=== PATIENT | female | born 2000 | race Caucasian/White ===

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

== ENCOUNTER 2019-06-12 11:02 | Emergency (ER) | payer BC ==
[2019-06-12] MEDS ORDERED: LIDOCAINE 1% MPF 30 ML VIAL ONE (11:54)
--- NOTE | 2019-06-12 12:28 | ER ---
Nurse's Notes [facility] Name: Maria Alejandra Dela Cruz Age: 18 yrs Sex: Female : 2000 Arrival Date: 06/12/2019 Time: 11:03 Bed 15 Private MD: Diagnosis: Cutaneous abscess of left axilla Presentation: 06/12 11:35 Presenting complaint: Patient states: Abscess on L armpit x 1 week. Popped last night. ca1 Reports fever. Transition of care: patient was not received from another setting of care. Onset of symptoms was June 12, 2019. Risk Assessment: Do you want to hurt yourself or someone else? Patient reports no desire to harm self or others. Initial Sepsis Screen: Does the patient meet any 2 criteria? No. Patient's initial sepsis screen is negative. Does the patient have a suspected source of infection? No. Patient's initial sepsis screen is negative. Care prior to arrival: None. 11:35 Method Of Arrival: Ambulatory ca1 11:35 Acuity: KAYLA 4 ca1 Triage Assessment: 12:00 General: Behavior is calm, cooperative, appropriate for age. 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 - Coronavirus screen:: The patient has NOT traveled to [place] in the past 14 days. The patient has NOT had contact with known/suspected case of Coronavirus?. - Social history:: Smoking status: Patient denies any tobacco usage or history of. - Ebola Screening: : Patient negative for fever greater than or equal to 101.5 degrees Fahrenheit, and additional compatible Ebola Virus Disease symptoms Patient denies exposure to infectious person Patient denies travel to an Ebola-affected area in the 21 days before illness onset No symptoms or risks identified at this time. Screenin:09 Abuse screen: Denies threats or abuse. Nutritional screening: No deficits noted. vc Tuberculosis screening: No symptoms or risk factors identified. Fall Risk None identified. Assessment: 11:50 General: Appears in no apparent distress. iw 12:00 General: Appears in no apparent distress. Behavior is calm, cooperative, appropriate vc for age. Pain: Complains of pain in left axilla 12:00 Neuro: Level of Consciousness is awake, alert, obeys commands, Oriented to person, vc place, time, situation, Appropriate for age. Cardiovascular: Patient's skin is warm and dry. Respiratory: Respiratory effort is even, unlabored, Respiratory pattern is regular, symmetrical. GI: No deficits noted. : No deficits noted. EENT: No deficits noted. Derm: Abscess located on left axilla. Musculoskeletal: Circulation, motion, and sensation intact. Range of motion: intact in all extremities. Vital Signs: 11:36 BP 136 / 89; Pulse 94; Resp 16 S; Temp 97.6(TE); Pulse Ox 99% on R/A; Weight 81.65 kg ca1 (R); Height 5 ft. 6 in. (167.64 cm) (R); Pain 4/10; 12:30 BP 136 / 68; Pulse 88; Resp 16; Pulse Ox 100% on R/A; vc 11:36 Body Mass Index 29.05 (81.65 kg, 167.64 cm) ca1 ED Course: 11:03 Patient arrived in ED. as 11:29 Steven Slade PA is PHCP. jr8 11:29 Joshua Castellon MD is Attending Physician. jr8 11:34 Lupis Crabtree, TONE is Primary Nurse. iw 11:35 Triage completed. ca1 11:36 Arm band placed on right wrist. ca1 12:28 Stoney Landrum MD is Referral Physician. jr8 12:30 Patient has correct armband on for positive identification. Bed in low position. Side vc rails up X 1. 12:44 Assist provider with I \T\ D: of an abscess on left axilla Set up I\T\D tray. Performed by vc Steven CHAVES Wound packed. iodoform gauze, Dressing with 4X4s, tape Patient tolerated well. 12:45 Dressings: 4X4s X 2; left axilla. vc 12:50 Patient did not have IV access during this emergency room visit. vc Administered Medications: 12:43 Drug: Lidocaine (1 %) 1 vials Volume: 20 ml; Route: Infiltration; vc Outcome: 12:28 Discharge ordered by MD. jr8 12:50 Discharged to home ambulatory, with family. 12:50 Condition: improved 12:50 Discharge instructions given to patient, family, Instructed on discharge instructions, follow up and referral plans. medication usage, wound care, Demonstrated understanding of instructions, follow-up care, medications, wound care, Prescriptions given X 2. 12:55 Patient left the ED. vc Signatures: Henrietta Quiros Irene, RN RN iw Steven Slade PA PA jr8 Acob, Cheryl, RN RN ca1 Tiffany Cabrera RN RN vc
--- NOTE | 2019-06-12 12:29 | EDPHYS ---
Physician Documentation [facility] Name: Maria Alejandra Dela Cruz Age: 18 yrs Sex: Female : 2000 Arrival Date: 06/12/2019 Time: 11:03 Bed 15 Private MD: ED Physician Joshua Castellon HPI: 06/12 12:09 This 18 yrs old Female presents to ER via Ambulatory with complaints of jr8 Abscess. 12:09 The patient presents with an abscess of the left armpit. Description: The affected area jr8 is moderate sized, well demarcated, draining, erythematous, fluctuant, swollen, tense. Onset: The symptoms/episode began/occurred gradually, 2 day(s) ago. Possible cause(s): unknown. Associated signs and symptoms: The patient has no apparent associated signs or symptoms. Modifying factors: the symptoms are alleviated by nothing, the symptoms are aggravated by nothing. Severity of symptoms: At their worst the symptoms were mild, in the emergency department the symptoms are unchanged. The patient has not experienced similar symptoms in the past. The patient has not recently seen a physician. 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 - Coronavirus screen:: The patient has NOT traveled to [place] in the past 14 days. The patient has NOT had contact with known/suspected case of Coronavirus?. - Social history:: Smoking status: Patient denies any tobacco usage or history of. - Ebola Screening: : Patient negative for fever greater than or equal to 101.5 degrees Fahrenheit, and additional compatible Ebola Virus Disease symptoms Patient denies exposure to infectious person Patient denies travel to an Ebola-affected area in the 21 days before illness onset No symptoms or risks identified at this time. ROS: 12:09 Constitutional: Negative for fever, chills, and weight loss. jr8 12:09 Eyes: Negative for injury, pain, redness, and discharge, ENT: Negative for injury, pain, and discharge, Neck: Negative for injury, pain, and swelling, Cardiovascular: Negative for chest pain, palpitations, and edema, Respiratory: Negative for shortness of breath, cough, wheezing, and pleuritic chest pain, Abdomen/GI: Negative for abdominal pain, nausea, vomiting, diarrhea, and constipation, Back: Negative for injury and pain, MS/Extremity: Negative for injury and deformity, Neuro: Negative for headache, weakness, numbness, tingling, and seizure. 12:09 Skin: Positive for abscess. Exam: 12:09 Eyes: Pupils equal round and reactive to light, extra-ocular motions intact. Lids and jr8 lashes normal. Conjunctiva and sclera are non-icteric and not injected. Cornea within normal limits. Periorbital areas with no swelling, redness, or edema. ENT: Nares patent. No nasal discharge, no septal abnormalities noted. Tympanic membranes are normal and external auditory canals are clear. Oropharynx with no redness, swelling, or masses, exudates, or evidence of obstruction, uvula midline. Mucous membranes moist. Neck: Trachea midline, no thyromegaly or masses palpated, and no cervical lymphadenopathy. Supple, full range of motion without nuchal rigidity, or vertebral point tenderness. No Meningismus. Cardiovascular: Regular rate and rhythm with a normal S1 and S2. No gallops, murmurs, or rubs. Normal PMI, no JVD. No pulse deficits. Respiratory: Lungs have equal breath sounds bilaterally, clear to auscultation and percussion. No rales, rhonchi or wheezes noted. No increased work of breathing, no retractions or nasal flaring. Abdomen/GI: Soft, non-tender, with normal bowel sounds. No distension or tympany. No guarding or rebound. No evidence of tenderness throughout. Back: No spinal tenderness. No costovertebral tenderness. Full range of motion. MS/ Extremity: Pulses equal, no cyanosis. Neurovascular intact. Full, normal range of motion. Neuro: Awake and alert, GCS 15, oriented to person, place, time, and situation. Cranial nerves II-XII grossly intact. Motor strength 5/5 in all extremities. Sensory grossly intact. Cerebellar exam normal. Normal gait. 12:09 Skin: abscess, that is moderate sized, approximately 2.5 cm(s), of the left armpit, with drainage, that is purulent, with fluctuance, that is moderate, cellulitis, is not appreciated, induration, that is moderate is noted. Vital Signs: 11:36 BP 136 / 89; Pulse 94; Resp 16 S; Temp 97.6(TE); Pulse Ox 99% on R/A; Weight 81.65 kg ca1 (R); Height 5 ft. 6 in. (167.64 cm) (R); Pain 4/10; 12:30 BP 136 / 68; Pulse 88; Resp 16; Pulse Ox 100% on R/A; vc 11:36 Body Mass Index 29.05 (81.65 kg, 167.64 cm) ca1 Procedures: 12:27 I \T\ D: Incision and drainage was performed for an abscess of the left axilla. Prepped jr8 with Betadine, Anesthetized with 10 ml's 1% Lidocaine. Incised with #11 blade. Drained moderate amount purulent fluid. serosanguinous fluid. bloody fluid. Loculations removed. Abscess cavity explored. Packed with iodoform gauze, Dressing: sterile 4x4 gauze, the patient tolerated the procedure well. MDM: 11:29 Patient medically screened. jr8 12:28 Differential diagnosis: abscess, cellulitis, insect bite. Data reviewed: vital signs, jr8 nurses notes. Data interpreted: Pulse oximetry: on room air is 99 %. Interpretation: normal. Counseling: I had a detailed discussion with the patient and/or guardian regarding: the historical points, exam findings, and any diagnostic results supporting the discharge/admit diagnosis, lab results, the need for outpatient follow up, a general surgeon, to return to the emergency department if symptoms worsen or persist or if there are any questions or concerns that arise at home. ED course: Told to return to ED in 48 for packing removal if she could not get into see general surgery or if things were to worsen. Patient good with plan . 06/12 11:44 Order name: I\T\D Setup; Complete Time: 11:55 jr8 Administered Medications: 12:43 Drug: Lidocaine (1 %) 1 vials Volume: 20 ml; Route: Infiltration; vc Disposition: 15:14 Co-signature as Attending Physician, Joshua Castellon MD. rn Disposition: 06/12/19 12:28 Discharged to Home. Impression: Cutaneous abscess of left axilla. - Condition is Stable. - Discharge Instructions: Skin Abscess, Incision and Drainage. - Prescriptions for Bactrim DS 800- 160 mg Oral Tablet - take 1 tablet by ORAL route every 12 hours for 10 days; 20 tablet. Ibuprofen 800 mg Oral Tablet - take 1 tablet by ORAL route every 12 hours As needed take with food; 20 tablet. - Medication Reconciliation Form, Thank You Letter, Antibiotic Education, Prescription Opioid Use form. - Follow up: Stoney Landrum MD; When: 48 Hours; Reason: Wound Recheck, Recheck today's complaints, Continuance of care, Re-evaluation by your physician. - Problem is new. - Symptoms have improved. Signatures: Joshua Castellon MD MD rn Steven Slade PA PA jr8 Melinda Mcclelladn RN RN ca1 Tiffany Cabrera RN RN vc Corrections: (The following items were deleted from the chart) 12:55 12:28 06/12/2019 12:28 Discharged to Home. Impression: Cutaneous abscess of left vc axilla. Condition is Stable. Forms are Medication Reconciliation Form, Thank You Letter, Antibiotic Education, Prescription Opioid Use. Follow up: Dr. Stoney Landrum; When: 48 Hours; Reason: Wound Recheck, Recheck today's complaints, Continuance of care, Re-evaluation by your physician. Problem is new. Symptoms have improved. jr8
[2019-06-12 13:23] VITALS: BP 136/89; TEMP 97.6; O2SAT 99
== END 2019-06-12 12:55 | disposition home or self-care (01) ==
LOC: ER 11:02
PROC: 0J9F0ZZ Drainage of Left Upper Arm Subcutaneous Tissue and Fascia, Open Approach (ICD-10-PCS; principal; 2019-06-12)
DX: L02.412 Cutaneous abscess of left axilla (principal)
CPT/HCPCS: 99283

== ENCOUNTER 2024-08-01 09:59 | Emergency (ER) | payer BC ==
--- OUTSIDE RECORDS SUMMARY | 2024-08-01 10:07 | XMS REPORT | Continuity of Care Document ---
Author Name Unknown Address [address] [facility] [address] [place] [address] [facility] [place] Address [address] [facility] [address] [place] [address] Care Team Providers Care Primary [place] Name Role Phone Xavier Beckford NP Primary Care Physic john XAVIER BECKFORD Attending Clinician Unavailable Analy MACHINE ACCOUNTANT, Xavier Attending Clinician + [phone] Camron Corbett MD Attending Clinician [phone] CAMRON CORBETT Attending Clinician Unavail able Doctor Unassigned, [place] Attending Clinician U navailable Analy MACHINE ACCOUNTANT, Xavier Attending Clinician [phone] YAHAIRA LUEVANO Attending Clinician Unavail able Haroldo VAZQUEZ Attending Clinician Unavailable Haroldo Christianson Attending Clinician [phone] Paola Yusuf MD Attending Clinician Sheri Tejeda PA-C Attending Clinician [phone] SHERI TEJEDA Attending Clinician Unavailable RADIOLOGY Attending Clinician Unavailable Radiology Attending Clinician Unavailable SUSAN SUAREZ Attending Clinician Unavailable PAOLA YUSUF Attending Clinician Milly vailable Vaccine, [facility] Attending Clinician UnaCyril Laurent DO Attending Clinician [phone] Provider, [facility] Attending Clinician Un available Ivy Bustillos Attending Clinician NAVJOT BOWEN Admitting Clinician Unavailabl e Payers Payer Name Policy Type Policy Number Effective Date Expirati on Date Source [facility] [id number] 2016 00:00:00 [employer] COMM [id number] 2019 00:00:00 Problems Condition Name Condition Details Condition Category Status Onset Date Resolution Date Last Treatment Date Treating Clinician Comments Source Other headache syndrome Other headache syndrome Disease Active 2023-04 00:00: 00 Jessie Valentin Epic Papilledem a Papilledem a Disease Active 2023-04 00:00: 00 Jessie Valentin Epic Acquired acanthosis nigricans Acquired acanthosis nigricans Disease Active 2014-04 00:00: 00 Jessie litzy [place] Epic BMI (body mass index), pediatric, > 99% for age BMI (body mass index), pediatric, > 99% for age Disease Active 2014-04 00:00: 00 [facility] Allergic rhinitis Allergic rhinitis Disease Active Overview: Formattin g of this note might be different from the original. ICD10 Diagnosis Term Meter/Relay Technician Utility [facility] Allergies, Adverse Reactions, Alerts Allergy Name Allergy Type Status Severity Reaction(s) Onset Date Inactive Date Treating Clinician Comments Source NO KNOWN ALLERGIE S Drug Class Active [facility] Social History Social Habit Start Date Stop Date Quantity Comments Source Gender identity 2024-03-22 15:50:23 Identifies as female gender (finding) [facility] Sexual orientation 2024-03-22 15:50:23 Heterosexual (finding) [facility] History SDOH Alcohol Std Drinks [facility] History SDOH Alcohol Binge [facility] History SDOH Alcohol Comment [place] [facility] ASSERTION Possible [facility] Tobacco use and exposure 2024-03-23 00:00:00 2024-03-23 00:00:00 Smokeless tobacco non-user [facility] History of Social function 2024-03-23 00:00:00 2024-03-23 00:00:00 [facility] Alcohol intake 2023-06-17 00:00:00 2023-06-17 00:00:00 Current drinker of alcohol (finding) [facility] Alcoholic beverage intake 2023-06-17 00:00:00 2023-06-17 00:00:00 Current drinker of alcohol (finding) [facility] Exposure to SARS-CoV-2 (event) 2022-05-18 00:00:00 2022-05-28 09:56:00 Not sure [facility] History SDOH Alcohol Frequency 2019-06-29 00:00:00 2019-06-29 00:00:00 1 [facility] Sex assigned at 2000 00:00:00 2000 00:00:00 [facility] Smoking Status Start Date Stop Date Source Never smoked tobacco Jessei Valentin [facility] Medications Ordered Medication Name Filled Medication Name Start Date Stop Date Current Medication? Ordering Clinician Indication Dosage Frequency Signature (SIG) Comments Components Source topiramate (Topamax) 25 MG tablet topiramate (Topamax) 25 MG tablet 2023-04 00:00: 00 03-23 23:59 :00 No 25mg Take 1 tablet by mouth at bedtime. Jessie Valentin [facility] Blood Pressure Monitor Kit 06-17 00:00: 00 Yes [id number] Use as directed [facility] semaglutide (OZEMPIC) 0.25 mg or 0.5 mg(2 mg/1.5 mL) PnIj 06-17 00:00: 00 07-09 04:59 :00 No [id number] .25mg inject 0.25 mg under the skin weekly for 4 doses. [facility] ergocalcife rol, vitamin d2, (VITAMIN D2) 1,250 mcg (50,000 unit) capsule 05-29 00:00: 00 07-19 04:59 :00 No [id number] Take 1 capsule by mouth weekly for 8 doses. [facility] SERTraline 50 mg tablet 05-28 00:00: 00 08-27 04:59 :00 No [id number] 50mg Take 1 tablet by mouth in the morning for 90 days. [facility] dexamethaso ne sod phos PF injection 10 mg 05-22 17:15: 00 05-22 17:23 :00 No 10mg 10 mg, Oral, ONCE, 1 dose, On Simran 05/22/22 at 1115, 1 mL [facility] ZENAIDA FE 1.5/30, 28, 1.5 mg-30 mcg (21)/75 mg (7) per tablet 2021-04 2- 00:00: 00 06-22 00:00 :00 No 1{tbl} Take 1 tablet by mouth in the morning. [facility] SERTraline 50 mg tablet 11-22 00:00: 00 05-28 00:00 :00 No [id number] 50mg Take 1 tablet by mouth in the morning. [facility] ferrous sulfate 324 mg (65 mg iron) EC tablet 2020-04 00:00: 00 05-28 00:00 :00 No [id number] 324mg Take 1 tablet by mouth daily with breakfast. [facility] SERTraline 50 mg tablet 2020-04 00:00: 00 11-22 00:00 :00 No [id number] 50mg Take 1 tablet by mouth daily. [facility] ferrous sulfate 324 mg (65 mg iron) EC tablet 2020-04 0-19 00:00: 00 03-28 00:00 :00 No [id number] 324mg Take 1 tablet by mouth daily with breakfast. [facility] Immunizations Ordered Immunization Name Filled Immunization Name Date Status Comments Source HPV9 2024-06-23 00:00:00 Completed [facility] HPV9 2022-05-28 00:00:00 Completed [facility] Influenza Virus Vaccine Quad IM, Preserv and ABX Free 6 MO-64 YRS 2022-05-28 00:00:00 Completed [facility] SARS-COV-2 COVID-19 CARLOS ALBERTO-SUCROSE VACCINE 12 YRS+, BIVALENT 0.3ML, IM, (PFIZER SOTELO TOP BOOSTER) 2022-05-28 00:00:00 Completed [facility] HPV9 2022-05-28 00:00:00 Completed [facility] Influenza Virus Vaccine Quad IM, Preserv and ABX Free 6 MO-64 YRS 2022-05-28 00:00:00 Completed [facility] SARS-COV-2 COVID-19 CARLOS ALBERTO-SUCROSE VACCINE 12 YRS+, BIVALENT 0.3ML, IM, (PFIZER SOTELO TOP BOOSTER) 2022-05-28 00:00:00 Completed [facility] HPV9 2022-05-28 00:00:00 Completed Influenza Virus Vaccine Quad IM, Preserv and ABX Free 6 MO-64 YRS (FLUCELVAX) 2022-05-28 00:00:00 Completed SARS-COV-2 COVID-19 CARLOS ALBERTO-SUCROSE VACCINE 12 YRS+, BIVALENT 0.3ML, IM, (PFIZER SOTELO TOP) 2022-05-28 00:00:00 Completed Influenza Virus Vaccine Quad IM, Preserv and ABX Free 6 MO-64 YRS 2021-02-01 00:00:00 Completed [facility] Influenza Virus Vaccine Quad IM, Preserv and ABX Free 6 MO-64 YRS 2021-02-01 00:00:00 Completed [facility] Influenza Virus Vaccine Quad IM, Preserv and ABX Free 6 MO-64 YRS 2021-02-01 00:00:00 Completed [facility] Influenza Virus Vaccine Quad IM, Preserv and ABX Free 6 MO-64 YRS 2021-02-01 00:00:00 Completed [facility] Influenza Virus Vaccine Quad IM, Preserv and ABX Free 6 MO-64 YRS 2021-02-01 00:00:00 Completed [facility] Influenza Virus Vaccine Quad IM, Preserv and ABX Free 6 MO-64 YRS 2021-02-01 00:00:00 Completed [facility] Influenza Virus Vaccine Quad IM, Preserv and ABX Free 6 MO-64 YRS 2021-02-01 00:00:00 Completed [facility] Influenza Virus Vaccine Quad IM, Preserv and ABX Free 6 MO-64 YRS 2021-02-01 00:00:00 Completed [facility] Influenza Virus Vaccine Quad IM, Preserv and ABX Free 6 MO-64 YRS 2021-02-01 00:00:00 Completed [facility] Influenza Virus Vaccine Quad IM, Preserv and ABX Free 6 MO-64 YRS (FLUCELVAX) 2021-02-01 00:00:00 Completed [facility] SARS-COV-2 COVID-19 PFIZER VACCINE 2020-11-26 00:00:00 Completed [facility] SARS-COV-2 COVID-19 PFIZER VACCINE 2020-11-26 00:00:00 Completed [facility] SARS-COV-2 COVID-19 PFIZER VACCINE 2020-11-26 00:00:00 Completed [facility] SARS-COV-2 COVID-19 PFIZER VACCINE 2020-11-26 00:00:00 Completed [facility] SARS-COV-2 COVID-19 PFIZER VACCINE 2020-11-26 00:00:00 Completed [facility] SARS-COV-2 COVID-19 PFIZER VACCINE 2020-11-26 00:00:00 Completed [facility] SARS-COV-2 COVID-19 PFIZER VACCINE 2020-11-26 00:00:00 Completed [facility] SARS-COV-2 COVID-19 PFIZER VACCINE 2020-11-26 00:00:00 Completed [facility] SARS-COV-2 COVID-19 PFIZER VACCINE 2020-11-26 00:00:00 Completed [facility] SARS-COV-2 COVID-19 PFIZER VACCINE 2020-11-26 00:00:00 Completed SARS-COV-2 COVID-19 PFIZER VACCINE 2020-11-01 00:00:00 Completed [facility] SARS-COV-2 COVID-19 PFIZER VACCINE 2020-11-01 00:00:00 Completed [facility] SARS-COV-2 COVID-19 PFIZER VACCINE 2020-11-01 00:00:00 Completed [facility] SARS-COV-2 COVID-19 PFIZER VACCINE 2020-11-01 00:00:00 Completed [facility] SARS-COV-2 COVID-19 PFIZER VACCINE 2020-11-01 00:00:00 Completed [facility] SARS-COV-2 COVID-19 PFIZER VACCINE 2020-11-01 00:00:00 Completed [facility] SARS-COV-2 COVID-19 PFIZER VACCINE 2020-11-01 00:00:00 Completed [facility] SARS-COV-2 COVID-19 PFIZER VACCINE 2020-11-01 00:00:00 Completed [facility] SARS-COV-2 COVID-19 PFIZER VACCINE 2020-11-01 00:00:00 Completed [facility] SARS-COV-2 COVID-19 PFIZER VACCINE 2020-11-01 00:00:00 Completed [facility] Influenza Virus Vaccine Quad .5 mL IM 6+ MO 2020-02-15 00:00:00 Completed [facility] Influenza Virus Vaccine Quad .5 mL IM 6+ MO 2020-02-15 00:00:00 Completed [facility] Influenza Virus Vaccine Quad .5 mL IM 6+ MO 2020-02-15 00:00:00 Completed [facility] Influenza Virus Vaccine Quad .5 mL IM 6+ MO 2020-02-15 00:00:00 Completed [facility] Influenza Virus Vaccine Quad .5 mL IM 6+ MO 2020-02-15 00:00:00 Completed [facility] Influenza Virus Vaccine Quad .5 mL IM 6+ MO 2020-02-15 00:00:00 Completed [facility] Influenza Virus Vaccine Quad .5 mL IM 6+ MO 2020-02-15 00:00:00 Completed [facility] Influenza Virus Vaccine Quad .5 mL IM 6+ MO 2020-02-15 00:00:00 Completed [facility] Influenza Virus Vaccine Quad .5 mL IM 6+ MO 2020-02-15 00:00:00 Completed [facility] Influenza Virus Vaccine Quad .5 mL IM 6+ MO (FLUZONE/FLULAVAL/FL UARIX) 2020-02-15 00:00:00 Completed Meningococcal B, OMV 2019-06-29 00:00:00 Completed [facility] HPV9 2019-06-29 00:00:00 Completed [facility] TDAP 2019-06-29 00:00:00 Completed [facility] Meningococcal Polysaccharide (groups A, C, Y and W-135) conjugate vaccine (MCV4P) 2019-06-29 00:00:00 Completed [facility] Meningococcal B, OMV 2019-06-29 00:00:00 Completed [facility] HPV9 2019-06-29 00:00:00 Completed [facility] TDAP 2019-06-29 00:00:00 Completed [facility] Meningococcal Polysaccharide (groups A, C, Y and W-135) conjugate vaccine (MCV4P) 2019-06-29 00:00:00 Completed [facility] Meningococcal B, OMV 2019-06-29 00:00:00 Completed [facility] HPV9 2019-06-29 00:00:00 Completed [facility] TDAP 2019-06-29 00:00:00 Completed [facility] Meningococcal Polysaccharide (groups A, C, Y and W-135) conjugate vaccine (MCV4P) 2019-06-29 00:00:00 Completed [facility] Meningococcal B, OMV 2019-06-29 00:00:00 Completed [facility] HPV9 2019-06-29 00:00:00 Completed [facility] TDAP 2019-06-29 00:00:00 Completed [facility] Meningococcal Polysaccharide (groups A, C, Y and W-135) conjugate vaccine (MCV4P) 2019-06-29 00:00:00 Completed [facility] Meningococcal B, OMV 2019-06-29 00:00:00 Completed [facility] HPV9 2019-06-29 00:00:00 Completed [facility] TDAP 2019-06-29 00:00:00 Completed [facility] Meningococcal Polysaccharide (groups A, C, Y and W-135) conjugate vaccine (MCV4P) 2019-06-29 00:00:00 Completed [facility] Meningococcal B, OMV 2019-06-29 00:00:00 Completed [facility] HPV9 2019-06-29 00:00:00 Completed [facility] TDAP 2019-06-29 00:00:00 Completed [facility] Meningococcal Polysaccharide (groups A, C, Y and W-135) conjugate vaccine (MCV4P) 2019-06-29 00:00:00 Completed [facility] Meningococcal B, OMV 2019-06-29 00:00:00 Completed [facility] HPV9 2019-06-29 00:00:00 Completed [facility] TDAP 2019-06-29 00:00:00 Completed [facility] Meningococcal Polysaccharide (groups A, C, Y and W-135) conjugate vaccine (MCV4P) 2019-06-29 00:00:00 Completed [facility] Meningococcal B, OMV 2019-06-29 00:00:00 Completed [facility] HPV9 2019-06-29 00:00:00 Completed [facility] TDAP 2019-06-29 00:00:00 Completed [facility] Meningococcal Polysaccharide (groups A, C, Y and W-135) conjugate vaccine (MCV4P) 2019-06-29 00:00:00 Completed [facility] Meningococcal B, OMV 2019-06-29 00:00:00 Completed [facility] HPV9 2019-06-29 00:00:00 Completed [facility] TDAP 2019-06-29 00:00:00 Completed [facility] Meningococcal Polysaccharide (groups A, C, Y and W-135) conjugate vaccine (MCV4P) 2019-06-29 00:00:00 Completed [facility] Meningococcal B, OMV 2019-06-29 00:00:00 Completed HPV9 2019-06-29 00:00:00 Completed TDAP 2019-06-29 00:00:00 Completed Meningococcal Polysaccharide (groups A, C, Y and W-135) conjugate vaccine (MCV4P) 2019-06-29 00:00:00 Completed Influenza Virus Vaccine Quad .5 mL IM 6+ MO 2019-06-21 00:00:00 Completed [facility] Influenza Virus Vaccine Quad .5 mL IM 6+ MO 2019-06-21 00:00:00 Completed [facility] Influenza Virus Vaccine Quad .5 mL IM 6+ MO 2019-06-21 00:00:00 Completed [facility] Influenza Virus Vaccine Quad .5 mL IM 6+ MO 2019-06-21 00:00:00 Completed [facility] Influenza Virus Vaccine Quad .5 mL IM 6+ MO 2019-06-21 00:00:00 Completed [facility] Influenza Virus Vaccine Quad .5 mL IM 6+ MO 2019-06-21 00:00:00 Completed [facility] Influenza Virus Vaccine Quad .5 mL IM 6+ MO 2019-06-21 00:00:00 Completed [facility] Influenza Virus Vaccine Quad .5 mL IM 6+ MO 2019-06-21 00:00:00 Completed [facility] Influenza Virus Vaccine Quad .5 mL IM 6+ MO 2019-06-21 00:00:00 Completed [facility] Influenza Virus Vaccine Quad .5 mL IM 6+ MO (FLUZONE/FLULAVAL/FL UARIX) 2019-06-21 00:00:00 Completed [facility] Influenza Virus Vaccine Quad Nasal 2015-01-26 00:00:00 Completed [facility] Influenza Virus Vaccine Quad Nasal 2015-01-26 00:00:00 Completed [facility] Influenza Virus Vaccine Quad Nasal 2015-01-26 00:00:00 Completed [facility] Influenza Virus Vaccine Quad Nasal 2015-01-26 00:00:00 Completed [facility] Influenza Virus Vaccine Quad Nasal 2015-01-26 00:00:00 Completed [facility] Influenza Virus Vaccine Quad Nasal 2015-01-26 00:00:00 Completed [facility] Influenza Virus Vaccine Quad Nasal 2015-01-26 00:00:00 Completed [facility] Influenza Virus Vaccine Quad Nasal 2015-01-26 00:00:00 Completed [facility] Influenza Virus Vaccine Quad Nasal 2015-01-26 00:00:00 Completed [facility] Influenza Virus Vaccine Quad Nasal (Flumist) 2015-01-26 00:00:00 Completed [facility] Influenza Virus Vaccine Quad .5 mL IM 6+ MO 2013-01-24 00:00:00 Completed [facility] Influenza Virus Vaccine Quad .5 mL IM 6+ MO 2013-01-24 00:00:00 Completed [facility] Influenza Virus Vaccine Quad .5 mL IM 6+ MO (FLUZONE/FLULAVAL/FL UARIX) 2013-01-24 00:00:00 Completed Influenza Virus Vaccine 2010-02-25 00:00:00 Completed [facility] Influenza Virus Vaccine 2010-02-25 00:00:00 Completed [facility] Influenza Virus Vaccine 2010-02-25 00:00:00 Completed [facility] Influenza Virus Vaccine 2010-02-25 00:00:00 Completed [facility] Influenza Virus Vaccine 2010-02-25 00:00:00 Completed [facility] Influenza Virus Vaccine 2010-02-25 00:00:00 Completed [facility] Influenza Virus Vaccine 2010-02-25 00:00:00 Completed [facility] Influenza Virus Vaccine 2010-02-25 00:00:00 Completed [facility] Influenza Virus Vaccine Nasal 2010-02-25 00:00:00 Completed [facility] Influenza Virus Vaccine 2010-02-25 00:00:00 Completed [facility] Influenza Virus Vaccine Nasal 2010-02-25 00:00:00 Completed [facility] Influenza Virus Vaccine 2010-02-25 00:00:00 Completed [facility] Influenza, Live, Trivalent, Intranasal (FLUMIST) 2010-02-25 00:00:00 Completed Influenza Virus Vaccine 2008-11-29 00:00:00 Completed [facility] Influenza Virus Vaccine 2008-11-29 00:00:00 Completed [facility] Influenza Virus Vaccine 2008-11-29 00:00:00 Completed [facility] Influenza Virus Vaccine 2008-11-29 00:00:00 Completed [facility] Influenza Virus Vaccine 2008-11-29 00:00:00 Completed [facility] Influenza Virus Vaccine 2008-11-29 00:00:00 Completed [facility] Influenza Virus Vaccine 2008-11-29 00:00:00 Completed [facility] Influenza Virus Vaccine 2008-11-29 00:00:00 Completed [facility] Influenza Virus Vaccine Nasal 2008-11-29 00:00:00 Completed [facility] Influenza Virus Vaccine 2008-11-29 00:00:00 Completed [facility] Influenza Virus Vaccine Nasal 2008-11-29 00:00:00 Completed [facility] Influenza Virus Vaccine 2008-11-29 00:00:00 Completed [facility] Influenza, Live, Trivalent, Intranasal (FLUMIST) 2008-11-29 00:00:00 Completed HEPATITIS A 2007-05-14 00:00:00 Completed [facility] Influenza Virus Vaccine 2007-05-14 00:00:00 Completed [facility] Varicella (varivax)(chicken pox) 2007-05-14 00:00:00 Completed [facility] HEPATITIS A 2007-05-14 00:00:00 Completed [facility] Influenza Virus Vaccine 2007-05-14 00:00:00 Completed [facility] Varicella (varivax)(chicken pox) 2007-05-14 00:00:00 Completed [facility] HEPATITIS A 2007-05-14 00:00:00 Completed [facility] Influenza Virus Vaccine 2007-05-14 00:00:00 Completed [facility] Varicella (varivax)(chicken pox) 2007-05-14 00:00:00 Completed [facility] HEPATITIS A 2007-05-14 00:00:00 Completed [facility] Influenza Virus Vaccine 2007-05-14 00:00:00 Completed [facility] Varicella (varivax)(chicken pox) 2007-05-14 00:00:00 Completed [facility] HEPATITIS A 2007-05-14 00:00:00 Completed [facility] Influenza Virus Vaccine 2007-05-14 00:00:00 Completed [facility] Varicella (varivax)(chicken pox) 2007-05-14 00:00:00 Completed [facility] HEPATITIS A 2007-05-14 00:00:00 Completed [facility] Influenza Virus Vaccine 2007-05-14 00:00:00 Completed [facility] Varicella (varivax)(chicken pox) 2007-05-14 00:00:00 Completed [facility] HEPATITIS A 2007-05-14 00:00:00 Completed [facility] Influenza Virus Vaccine 2007-05-14 00:00:00 Completed [facility] Varicella (varivax)(chicken pox) 2007-05-14 00:00:00 Completed [facility] HEPATITIS A 2007-05-14 00:00:00 Completed [facility] Influenza Virus Vaccine 2007-05-14 00:00:00 Completed [facility] Varicella (varivax)(chicken pox) 2007-05-14 00:00:00 Completed [facility] Influenza Virus Vaccine - Whole 2007-05-14 00:00:00 Completed [facility] HEPATITIS A 2007-05-14 00:00:00 Completed [facility] Influenza Virus Vaccine 2007-05-14 00:00:00 Completed [facility] Varicella (varivax)(chicken pox) 2007-05-14 00:00:00 Completed [facility] Influenza Virus Vaccine - Whole 2007-05-14 00:00:00 Completed [facility] HEPATITIS A 2007-05-14 00:00:00 Completed [facility] Influenza Virus Vaccine 2007-05-14 00:00:00 Completed Varicella (varivax)(chicken pox) 2007-05-14 00:00:00 Completed Influenza Virus Vaccine - Whole 2007-05-14 00:00:00 Completed Influenza Virus Vaccine 2006-03-19 00:00:00 Completed [facility] Influenza Virus Vaccine 2006-03-19 00:00:00 Completed [facility] Influenza Virus Vaccine 2006-03-19 00:00:00 Completed [facility] Influenza Virus Vaccine 2006-03-19 00:00:00 Completed [facility] Influenza Virus Vaccine 2006-03-19 00:00:00 Completed [facility] Influenza Virus Vaccine 2006-03-19 00:00:00 Completed [facility] Influenza Virus Vaccine 2006-03-19 00:00:00 Completed [facility] Influenza Virus Vaccine 2006-03-19 00:00:00 Completed [facility] Influenza Virus Vaccine 2006-03-19 00:00:00 Completed [facility] Influenza Virus Vaccine 2006-03-19 00:00:00 Completed [facility] Influenza Virus Vaccine 2006-03-11 00:00:00 Completed [facility] Influenza Virus Vaccine 2006-03-11 00:00:00 Completed [facility] Influenza Virus Vaccine 2006-03-11 00:00:00 Completed [facility] Influenza Virus Vaccine 2006-03-11 00:00:00 Completed [facility] Influenza Virus Vaccine 2006-03-11 00:00:00 Completed [facility] Influenza Virus Vaccine 2006-03-11 00:00:00 Completed [facility] Influenza Virus Vaccine 2006-03-11 00:00:00 Completed [facility] Influenza Virus Vaccine 2006-03-11 00:00:00 Completed [facility] Influenza Virus Vaccine 2006-03-11 00:00:00 Completed [facility] Influenza Virus Vaccine 2006-03-11 00:00:00 Completed Influenza Virus Vaccine 2005-03-17 00:00:00 Completed [facility] HEPATITIS A 2005-03-17 00:00:00 Completed [facility] Influenza Virus Vaccine 2005-03-17 00:00:00 Completed [facility] HEPATITIS A 2005-03-17 00:00:00 Completed [facility] Influenza Virus Vaccine 2005-03-17 00:00:00 Completed [facility] HEPATITIS A 2005-03-17 00:00:00 Completed [facility] Influenza Virus Vaccine 2005-03-17 00:00:00 Completed [facility] HEPATITIS A 2005-03-17 00:00:00 Completed [facility] Influenza Virus Vaccine 2005-03-17 00:00:00 Completed [facility] HEPATITIS A 2005-03-17 00:00:00 Completed [facility] Influenza Virus Vaccine 2005-03-17 00:00:00 Completed [facility] HEPATITIS A 2005-03-17 00:00:00 Completed [facility] Influenza Virus Vaccine 2005-03-17 00:00:00 Completed [facility] HEPATITIS A 2005-03-17 00:00:00 Completed [facility] Influenza Virus Vaccine 2005-03-17 00:00:00 Completed [facility] HEPATITIS A 2005-03-17 00:00:00 Completed [facility] Influenza Virus Vaccine 2005-03-17 00:00:00 Completed [facility] HEPATITIS A 2005-03-17 00:00:00 Completed [facility] Influenza Virus Vaccine 2005-03-17 00:00:00 Completed HEPATITIS A 2005-03-17 00:00:00 Completed DTAP 2003-11-27 00:00:00 Completed [facility] MMR 2003-11-27 00:00:00 Completed [facility] Polio (IPV/OPV) 2003-11-27 00:00:00 Completed [facility] DTAP 2003-11-27 00:00:00 Completed [facility] MMR 2003-11-27 00:00:00 Completed [facility] Polio (IPV/OPV) 2003-11-27 00:00:00 Completed [facility] DTAP 2003-11-27 00:00:00 Completed [facility] MMR 2003-11-27 00:00:00 Completed [facility] Polio (IPV/OPV) 2003-11-27 00:00:00 Completed [facility] DTAP 2003-11-27 00:00:00 Completed [facility] MMR 2003-11-27 00:00:00 Completed [facility] Polio (IPV/OPV) 2003-11-27 00:00:00 Completed [facility] DTAP 2003-11-27 00:00:00 Completed [facility] MMR 2003-11-27 00:00:00 Completed [facility] Polio (IPV/OPV) 2003-11-27 00:00:00 Completed [facility] DTAP 2003-11-27 00:00:00 Completed [facility] MMR 2003-11-27 00:00:00 Completed [facility] Polio (IPV/OPV) 2003-11-27 00:00:00 Completed [facility] DTAP 2003-11-27 00:00:00 Completed [facility] MMR 2003-11-27 00:00:00 Completed [facility] Polio (IPV/OPV) 2003-11-27 00:00:00 Completed [facility] DTAP 2003-11-27 00:00:00 Completed [facility] MMR 2003-11-27 00:00:00 Completed [facility] Polio (IPV/OPV) 2003-11-27 00:00:00 Completed [facility] DTaP, Unspecified Formulation 2003-11-27 00:00:00 Completed [facility] IPV 2003-11-27 00:00:00 Completed [facility] DTAP 2003-11-27 00:00:00 Completed [facility] MMR 2003-11-27 00:00:00 Completed [facility] Polio (IPV/OPV) 2003-11-27 00:00:00 Completed [facility] DTaP, Unspecified Formulation 2003-11-27 00:00:00 Completed [facility] IPV 2003-11-27 00:00:00 Completed [facility] DTAP 2003-11-27 00:00:00 Completed MMR 2003-11-27 00:00:00 Completed Polio (IPV/OPV) 2003-11-27 00:00:00 Completed DTaP, Unspecified Formulation 2003-11-27 00:00:00 Completed IPV 2003-11-27 00:00:00 Completed Hep B, Adol or Pedi Dosage 2001-11-10 00:00:00 Completed [facility] Hep B, Adol or Pedi Dosage 2001-11-10 00:00:00 Completed [facility] Hep B, Adol or Pedi Dosage 2001-11-10 00:00:00 Completed [facility] Hep B, Adol or Pedi Dosage 2001-11-10 00:00:00 Completed [facility] Hep B, Adol or Pedi Dosage 2001-11-10 00:00:00 Completed [facility] Hep B, Adol or Pedi Dosage 2001-11-10 00:00:00 Completed [facility] Hep B, Adol or Pedi Dosage 2001-11-10 00:00:00 Completed [facility] Hep B, Adol or Pedi Dosage 2001-11-10 00:00:00 Completed [facility] Hep B, Adol or Pedi Dosage 2001-11-10 00:00:00 Completed [facility] Hep B, Adol or Pedi Dosage 2001-11-10 00:00:00 Completed DTAP 2001-01-21 00:00:00 Completed [facility] Pneumococcal 7 Conjugate, PCV7 (Prevnar7) 2001-01-21 00:00:00 Completed [facility] Varicella (varivax)(chicken pox) 2001-01-21 00:00:00 Completed [facility] DTAP 2001-01-21 00:00:00 Completed [facility] Pneumococcal 7 Conjugate, PCV7 (Prevnar7) 2001-01-21 00:00:00 Completed [facility] Varicella (varivax)(chicken pox) 2001-01-21 00:00:00 Completed [facility] DTAP 2001-01-21 00:00:00 Completed [facility] Pneumococcal 7 Conjugate, PCV7 (Prevnar7) 2001-01-21 00:00:00 Completed [facility] Varicella (varivax)(chicken pox) 2001-01-21 00:00:00 Completed [facility] DTAP 2001-01-21 00:00:00 Completed [facility] Pneumococcal 7 Conjugate, PCV7 (Prevnar7) 2001-01-21 00:00:00 Completed [facility] Varicella (varivax)(chicken pox) 2001-01-21 00:00:00 Completed [facility] DTAP 2001-01-21 00:00:00 Completed [facility] Pneumococcal 7 Conjugate, PCV7 (Prevnar7) 2001-01-21 00:00:00 Completed [facility] Varicella (varivax)(chicken pox) 2001-01-21 00:00:00 Completed [facility] DTAP 2001-01-21 00:00:00 Completed [facility] Pneumococcal 7 Conjugate, PCV7 (Prevnar7) 2001-01-21 00:00:00 Completed [facility] Varicella (varivax)(chicken pox) 2001-01-21 00:00:00 Completed [facility] DTAP 2001-01-21 00:00:00 Completed [facility] Pneumococcal 7 Conjugate, PCV7 (Prevnar7) 2001-01-21 00:00:00 Completed [facility] Varicella (varivax)(chicken pox) 2001-01-21 00:00:00 Completed [facility] DTAP 2001-01-21 00:00:00 Completed [facility] Pneumococcal 7 Conjugate, PCV7 (Prevnar7) 2001-01-21 00:00:00 Completed [facility] Varicella (varivax)(chicken pox) 2001-01-21 00:00:00 Completed [facility] DTaP, Unspecified Formulation 2001-01-21 00:00:00 Completed [facility] DTAP 2001-01-21 00:00:00 Completed [facility] Pneumococcal 7 Conjugate, PCV7 (Prevnar7) 2001-01-21 00:00:00 Completed [facility] Varicella (varivax)(chicken pox) 2001-01-21 00:00:00 Completed [facility] DTaP, Unspecified Formulation 2001-01-21 00:00:00 Completed [facility] DTAP 2001-01-21 00:00:00 Completed Pneumococcal 7 Conjugate, PCV7 (Prevnar7) 2001-01-21 00:00:00 Completed Varicella (varivax)(chicken pox) 2001-01-21 00:00:00 Completed DTaP, Unspecified Formulation 2001-01-21 00:00:00 Completed HIB 4 Dose Schedule 2000-11-05 00:00:00 Completed [facility] MMR 2000-11-05 00:00:00 Completed [facility] Pneumococcal 7 Conjugate, PCV7 (Prevnar7) 2000-11-05 00:00:00 Completed [facility] Polio (IPV/OPV) 2000-11-05 00:00:00 Completed [facility] HIB 4 Dose Schedule 2000-11-05 00:00:00 Completed [facility] MMR 2000-11-05 00:00:00 Completed [facility] Pneumococcal 7 Conjugate, PCV7 (Prevnar7) 2000-11-05 00:00:00 Completed [facility] Polio (IPV/OPV) 2000-11-05 00:00:00 Completed [facility] HIB 4 Dose Schedule 2000-11-05 00:00:00 Completed [facility] MMR 2000-11-05 00:00:00 Completed [facility] Pneumococcal 7 Conjugate, PCV7 (Prevnar7) 2000-11-05 00:00:00 Completed [facility] Polio (IPV/OPV) 2000-11-05 00:00:00 Completed [facility] HIB 4 Dose Schedule 2000-11-05 00:00:00 Completed [facility] MMR 2000-11-05 00:00:00 Completed [facility] Pneumococcal 7 Conjugate, PCV7 (Prevnar7) 2000-11-05 00:00:00 Completed [facility] Polio (IPV/OPV) 2000-11-05 00:00:00 Completed [facility] HIB 4 Dose Schedule 2000-11-05 00:00:00 Completed [facility] MMR 2000-11-05 00:00:00 Completed [facility] Pneumococcal 7 Conjugate, PCV7 (Prevnar7) 2000-11-05 00:00:00 Completed [facility] Polio (IPV/OPV) 2000-11-05 00:00:00 Completed [facility] HIB 4 Dose Schedule 2000-11-05 00:00:00 Completed [facility] MMR 2000-11-05 00:00:00 Completed [facility] Pneumococcal 7 Conjugate, PCV7 (Prevnar7) 2000-11-05 00:00:00 Completed [facility] Polio (IPV/OPV) 2000-11-05 00:00:00 Completed [facility] HIB 4 Dose Schedule 2000-11-05 00:00:00 Completed [facility] MMR 2000-11-05 00:00:00 Completed [facility] Pneumococcal 7 Conjugate, PCV7 (Prevnar7) 2000-11-05 00:00:00 Completed [facility] Polio (IPV/OPV) 2000-11-05 00:00:00 Completed [facility] HIB 4 Dose Schedule 2000-11-05 00:00:00 Completed [facility] MMR 2000-11-05 00:00:00 Completed [facility] Pneumococcal 7 Conjugate, PCV7 (Prevnar7) 2000-11-05 00:00:00 Completed [facility] Polio (IPV/OPV) 2000-11-05 00:00:00 Completed [facility] IPV 2000-11-05 00:00:00 Completed [facility] HIB 4 Dose Schedule 2000-11-05 00:00:00 Completed [facility] MMR 2000-11-05 00:00:00 Completed [facility] Pneumococcal 7 Conjugate, PCV7 (Prevnar7) 2000-11-05 00:00:00 Completed [facility] Polio (IPV/OPV) 2000-11-05 00:00:00 Completed [facility] IPV 2000-11-05 00:00:00 Completed [facility] HIB 4 Dose Schedule 2000-11-05 00:00:00 Completed MMR 2000-11-05 00:00:00 Completed Pneumococcal 7 Conjugate, PCV7 (Prevnar7) 2000-11-05 00:00:00 Completed Polio (IPV/OPV) 2000-11-05 00:00:00 Completed IPV 2000-11-05 00:00:00 Completed Hep B, Adol or Pedi Dosage 2000-08-10 00:00:00 Completed [facility] Hep B, Adol or Pedi Dosage 2000-08-10 00:00:00 Completed [facility] Hep B, Adol or Pedi Dosage 2000-08-10 00:00:00 Completed [facility] Hep B, Adol or Pedi Dosage 2000-08-10 00:00:00 Completed [facility] Hep B, Adol or Pedi Dosage 2000-08-10 00:00:00 Completed [facility] Hep B, Adol or Pedi Dosage 2000-08-10 00:00:00 Completed [facility] Hep B, Adol or Pedi Dosage 2000-08-10 00:00:00 Completed [facility] Hep B, Adol or Pedi Dosage 2000-08-10 00:00:00 Completed [facility] Hep B, Adol or Pedi Dosage 2000-08-10 00:00:00 Completed [facility] Hep B, Adol or Pedi Dosage 2000-08-10 00:00:00 Completed DTAP 2000-05-14 00:00:00 Completed [facility] HIB 4 Dose Schedule 2000-05-14 00:00:00 Completed [facility] DTAP 2000-05-14 00:00:00 Completed [facility] HIB 4 Dose Schedule 2000-05-14 00:00:00 Completed [facility] DTAP 2000-05-14 00:00:00 Completed [facility] HIB 4 Dose Schedule 2000-05-14 00:00:00 Completed [facility] DTAP 2000-05-14 00:00:00 Completed [facility] HIB 4 Dose Schedule 2000-05-14 00:00:00 Completed [facility] DTAP 2000-05-14 00:00:00 Completed [facility] HIB 4 Dose Schedule 2000-05-14 00:00:00 Completed [facility] DTAP 2000-05-14 00:00:00 Completed [facility] HIB 4 Dose Schedule 2000-05-14 00:00:00 Completed [facility] DTAP 2000-05-14 00:00:00 Completed [facility] HIB 4 Dose Schedule 2000-05-14 00:00:00 Completed [facility] DTAP 2000-05-14 00:00:00 Completed [facility] HIB 4 Dose Schedule 2000-05-14 00:00:00 Completed [facility] DTaP, Unspecified Formulation 2000-05-14 00:00:00 Completed [facility] DTAP 2000-05-14 00:00:00 Completed [facility] HIB 4 Dose Schedule 2000-05-14 00:00:00 Completed [facility] DTaP, Unspecified Formulation 2000-05-14 00:00:00 Completed [facility] DTAP 2000-05-14 00:00:00 Completed HIB 4 Dose Schedule 2000-05-14 00:00:00 Completed DTaP, Unspecified Formulation 2000-05-14 00:00:00 Completed DTAP 2000-03-11 00:00:00 Completed [facility] HIB 4 Dose Schedule 2000-03-11 00:00:00 Completed [facility] Hep B, Adol or Pedi Dosage 2000-03-11 00:00:00 Completed [facility] Polio (IPV/OPV) 2000-03-11 00:00:00 Completed [facility] DTAP 2000-03-11 00:00:00 Completed [facility] HIB 4 Dose Schedule 2000-03-11 00:00:00 Completed [facility] Hep B, Adol or Pedi Dosage 2000-03-11 00:00:00 Completed [facility] Polio (IPV/OPV) 2000-03-11 00:00:00 Completed [facility] DTAP 2000-03-11 00:00:00 Completed [facility] HIB 4 Dose Schedule 2000-03-11 00:00:00 Completed [facility] Hep B, Adol or Pedi Dosage 2000-03-11 00:00:00 Completed [facility] Polio (IPV/OPV) 2000-03-11 00:00:00 Completed [facility] DTAP 2000-03-11 00:00:00 Completed [facility] HIB 4 Dose Schedule 2000-03-11 00:00:00 Completed [facility] Hep B, Adol or Pedi Dosage 2000-03-11 00:00:00 Completed [facility] Polio (IPV/OPV) 2000-03-11 00:00:00 Completed [facility] DTAP 2000-03-11 00:00:00 Completed [facility] HIB 4 Dose Schedule 2000-03-11 00:00:00 Completed [facility] Hep B, Adol or Pedi Dosage 2000-03-11 00:00:00 Completed [facility] Polio (IPV/OPV) 2000-03-11 00:00:00 Completed [facility] DTAP 2000-03-11 00:00:00 Completed [facility] HIB 4 Dose Schedule 2000-03-11 00:00:00 Completed [facility] Hep B, Adol or Pedi Dosage 2000-03-11 00:00:00 Completed [facility] Polio (IPV/OPV) 2000-03-11 00:00:00 Completed [facility] DTAP 2000-03-11 00:00:00 Completed [facility] HIB 4 Dose Schedule 2000-03-11 00:00:00 Completed [facility] Hep B, Adol or Pedi Dosage 2000-03-11 00:00:00 Completed [facility] Polio (IPV/OPV) 2000-03-11 00:00:00 Completed [facility] DTAP 2000-03-11 00:00:00 Completed [facility] HIB 4 Dose Schedule 2000-03-11 00:00:00 Completed [facility] Hep B, Adol or Pedi Dosage 2000-03-11 00:00:00 Completed [facility] Polio (IPV/OPV) 2000-03-11 00:00:00 Completed [facility] DTaP, Unspecified Formulation 2000-03-11 00:00:00 Completed [facility] IPV 2000-03-11 00:00:00 Completed [facility] DTAP 2000-03-11 00:00:00 Completed [facility] HIB 4 Dose Schedule 2000-03-11 00:00:00 Completed [facility] Hep B, Adol or Pedi Dosage 2000-03-11 00:00:00 Completed [facility] Polio (IPV/OPV) 2000-03-11 00:00:00 Completed [facility] DTaP, Unspecified Formulation 2000-03-11 00:00:00 Completed [facility] IPV 2000-03-11 00:00:00 Completed [facility] DTAP 2000-03-11 00:00:00 Completed HIB 4 Dose Schedule 2000-03-11 00:00:00 Completed Hep B, Adol or Pedi Dosage 2000-03-11 00:00:00 Completed Polio (IPV/OPV) 2000-03-11 00:00:00 Completed DTaP, Unspecified Formulation 2000-03-11 00:00:00 Completed IPV 2000-03-11 00:00:00 Completed DTAP 1999 00:00:00 Completed [facility] HIB 4 Dose Schedule 1999 00:00:00 Completed [facility] Polio (IPV/OPV) 1999 00:00:00 Completed [facility] DTAP 1999 00:00:00 Completed [facility] HIB 4 Dose Schedule 1999 00:00:00 Completed [facility] Polio (IPV/OPV) 1999 00:00:00 Completed [facility] DTAP 1999 00:00:00 Completed [facility] HIB 4 Dose Schedule 1999 00:00:00 Completed [facility] Polio (IPV/OPV) 1999 00:00:00 Completed [facility] DTAP 1999 00:00:00 Completed [facility] HIB 4 Dose Schedule 1999 00:00:00 Completed [facility] Polio (IPV/OPV) 1999 00:00:00 Completed [facility] DTAP 1999 00:00:00 Completed [facility] HIB 4 Dose Schedule 1999 00:00:00 Completed [facility] Polio (IPV/OPV) 1999 00:00:00 Completed [facility] DTAP 1999 00:00:00 Completed [facility] HIB 4 Dose Schedule 1999 00:00:00 Completed [facility] Polio (IPV/OPV) 1999 00:00:00 Completed [facility] DTAP 1999 00:00:00 Completed [facility] HIB 4 Dose Schedule 1999 00:00:00 Completed [facility] Polio (IPV/OPV) 1999 00:00:00 Completed [facility] DTAP 1999 00:00:00 Completed [facility] HIB 4 Dose Schedule 1999 00:00:00 Completed [facility] Polio (IPV/OPV) 1999 00:00:00 Completed [facility] DTaP, Unspecified Formulation 1999 00:00:00 Completed [facility] IPV 1999 00:00:00 Completed [facility] DTAP 1999 00:00:00 Completed [facility] HIB 4 Dose Schedule 1999 00:00:00 Completed [facility] Polio (IPV/OPV) 1999 00:00:00 Completed [facility] DTaP, Unspecified Formulation 1999 00:00:00 Completed [facility] IPV 1999 00:00:00 Completed [facility] DTAP 1999 00:00:00 Completed [facility] HIB 4 Dose Schedule 1999 00:00:00 Completed Polio (IPV/OPV) 1999 00:00:00 Completed DTaP, Unspecified Formulation 1999 00:00:00 Completed IPV 1999 00:00:00 Completed Hep B, Adol or Pedi Dosage 1999 00:00:00 Completed [facility] Hep B, Adol or Pedi Dosage 1999 00:00:00 Completed [facility] Hep B, Adol or Pedi Dosage 1999 00:00:00 Completed DTAP Unknown Completed [facility] HIB 4 Dose Schedule Unknown Completed [facility] MMR Unknown Completed [facility] Pneumococcal 7 Conjugate, PCV7 (Prevnar7) Unknown Completed [facility] Polio (IPV/OPV) Unknown Completed [facility] Varicella (varivax)(chicken pox) Unknown Completed [facility] Influenza Virus Vaccine Unknown Completed [facility] HEPATITIS A Unknown Completed [facility] Influenza Virus Vaccine Unknown Completed [facility] Influenza Virus Vaccine Quad Nasal (Flumist) Unknown Completed [facility] Influenza Virus Vaccine Quad .5 mL IM 6+ MO (FLUZONE/FLULAVAL/FL UARIX) Unknown Completed [facility] Meningococcal B, OMV Unknown Completed [facility] HPV9 Unknown Completed [facility] TDAP Unknown Completed [facility] Meningococcal Polysaccharide (groups A, C, Y and W-135) conjugate vaccine (MCV4P) Unknown Completed [facility] SARS-COV-2 COVID-19 PFIZER VACCINE Unknown Completed [facility] Influenza Virus Vaccine Quad IM, Preserv and ABX Free 6 MO-64 YRS (FLUCELVAX) Unknown Completed [facility] DTaP, Unspecified Formulation Unknown Completed [facility] Influenza Virus Vaccine - Whole Unknown Completed [facility] Influenza Virus Vaccine Nasal Unknown Completed [facility] Hep B, Adol or Pedi Dosage Unknown Completed [facility] IPV Unknown Completed [facility] DTAP Unknown Completed [facility] HIB 4 Dose Schedule Unknown Completed [facility] Hep B, Adol or Pedi Dosage Unknown Completed [facility] MMR Unknown Completed [facility] Pneumococcal 7 Conjugate, PCV7 (Prevnar7) Unknown Completed [facility] Polio (IPV/OPV) Unknown Completed [facility] Varicella (varivax)(chicken pox) Unknown Completed [facility] Influenza Virus Vaccine Unknown Completed [facility] HEPATITIS A Unknown Completed [facility] Influenza Virus Vaccine Unknown Completed [facility] Influenza Virus Vaccine Quad Nasal (Flumist) Unknown Completed [facility] Influenza Virus Vaccine Quad .5 mL IM 6+ MO (FLUZONE/FLULAVAL/FL UARIX) Unknown Completed [facility] Meningococcal B, OMV Unknown Completed [facility] HPV9 Unknown Completed [facility] TDAP Unknown Completed [facility] Meningococcal Polysaccharide (groups A, C, Y and W-135) conjugate vaccine (MCV4P) Unknown Completed [facility] SARS-COV-2 COVID-19 PFIZER VACCINE Unknown Completed [facility] Influenza Virus Vaccine Quad IM, Preserv and ABX Free 6 MO-64 YRS (FLUCELVAX) Unknown Completed [facility] DTaP, Unspecified Formulation Unknown Completed [facility] Influenza Virus Vaccine - Whole Unknown Completed [facility] Influenza Virus Vaccine Nasal Unknown Completed [facility] IPV Unknown Completed [facility] SARS-COV-2 COVID-19 CARLOS ALBERTO-SUCROSE VACCINE 12 YRS+, BIVALENT 0.3ML, IM, (PFIZER SOTELO TOP) Unknown Completed [facility] Influenza Virus Vaccine Quad Nasal (Flumist) Unknown Completed [facility] Meningococcal B, OMV Unknown Completed [facility] TDAP Unknown Completed [facility] Meningococcal Polysaccharide (groups A, C, Y and W-135) conjugate vaccine (MCV4P) Unknown Completed [facility] Influenza Virus Vaccine - Whole Unknown Completed [facility] SARS-COV-2 COVID-19 CARLOS ALBERTO-SUCROSE VACCINE 12 YRS+, BIVALENT 0.3ML, IM, (PFIZER SOTELO TOP) Unknown Completed [facility] DTAP Unknown Completed [facility] HIB 4 Dose Schedule Unknown Completed [facility] Hep B, Adol or Pedi Dosage Unknown Completed [facility] MMR Unknown Completed [facility] Pneumococcal 7 Conjugate, PCV7 (Prevnar7) Unknown Completed [facility] Polio (IPV/OPV) Unknown Completed [facility] Varicella (varivax)(chicken pox) Unknown Completed [facility] Influenza Virus Vaccine Unknown Completed [facility] HEPATITIS A Unknown Completed [facility] Influenza Virus Vaccine Unknown Completed [facility] Influenza Virus Vaccine Quad .5 mL IM 6+ MO (FLUZONE/FLULAVAL/FL UARIX) Unknown Completed [facility] HPV9 Unknown Completed [facility] SARS-COV-2 COVID-19 PFIZER VACCINE Unknown Completed [facility] Influenza Virus Vaccine Quad IM, Preserv and ABX Free 6 MO-64 YRS (FLUCELVAX) Unknown Completed [facility] DTaP, Unspecified Formulation Unknown Completed [facility] Influenza Virus Vaccine Nasal Unknown Completed [facility] IPV Unknown Completed [facility] Influenza Virus Vaccine Quad Nasal (Flumist) Unknown Completed [facility] Meningococcal B, OMV Unknown Completed [facility] TDAP Unknown Completed [facility] Meningococcal Polysaccharide (groups A, C, Y and W-135) conjugate vaccine (MCV4P) Unknown Completed [facility] Influenza Virus Vaccine - Whole Unknown Completed [facility] SARS-COV-2 COVID-19 CARLOS ALBERTO-SUCROSE VACCINE 12 YRS+, BIVALENT 0.3ML, IM, (PFIZER SOTELO TOP) Unknown Completed [facility] DTAP Unknown Completed [facility] HIB 4 Dose Schedule Unknown Completed [facility] Hep B, Adol or Pedi Dosage Unknown Completed [facility] MMR Unknown Completed [facility] Pneumococcal 7 Conjugate, PCV7 (Prevnar7) Unknown Completed [facility] Polio (IPV/OPV) Unknown Completed [facility] Varicella (varivax)(chicken pox) Unknown Completed [facility] Influenza Virus Vaccine Unknown Completed [facility] HEPATITIS A Unknown Completed [facility] Influenza Virus Vaccine Unknown Completed [facility] Influenza Virus Vaccine Quad .5 mL IM 6+ MO (FLUZONE/FLULAVAL/FL UARIX) Unknown Completed [facility] HPV9 Unknown Completed [facility] SARS-COV-2 COVID-19 PFIZER VACCINE Unknown Completed [facility] Influenza Virus Vaccine Quad IM, Preserv and ABX Free 6 MO-64 YRS (FLUCELVAX) Unknown Completed [facility] DTaP, Unspecified Formulation Unknown Completed [facility] Influenza Virus Vaccine Nasal Unknown Completed [facility] IPV Unknown Completed [facility] DTAP Unknown Completed [facility] HIB 4 Dose Schedule Unknown Completed [facility] Hep B, Adol or Pedi Dosage Unknown Completed [facility] MMR Unknown Completed [facility] Pneumococcal 7 Conjugate, PCV7 (Prevnar7) Unknown Completed [facility] Polio (IPV/OPV) Unknown Completed [facility] Varicella (varivax)(chicken pox) Unknown Completed [facility] Influenza Virus Vaccine Unknown Completed [facility] HEPATITIS A Unknown Completed [facility] Influenza Virus Vaccine Unknown Completed [facility] Influenza Virus Vaccine Quad Nasal (Flumist) Unknown Completed [facility] Influenza Virus Vaccine Quad .5 mL IM 6+ MO (FLUZONE/FLULAVAL/FL UARIX) Unknown Completed [facility] Meningococcal B, OMV Unknown Completed [facility] HPV9 Unknown Completed [facility] TDAP Unknown Completed [facility] Meningococcal Polysaccharide (groups A, C, Y and W-135) conjugate vaccine (MCV4P) Unknown Completed [facility] SARS-COV-2 COVID-19 PFIZER VACCINE Unknown Completed [facility] Influenza Virus Vaccine Quad IM, Preserv and ABX Free 6 MO-64 YRS (FLUCELVAX) Unknown Completed [facility] DTaP, Unspecified Formulation Unknown Completed [facility] Influenza Virus Vaccine - Whole Unknown Completed [facility] Influenza Virus Vaccine Nasal Unknown Completed [facility] IPV Unknown Completed [facility] SARS-COV-2 COVID-19 CARLOS ALBERTO-SUCROSE VACCINE 12 YRS+, BIVALENT 0.3ML, IM, (PFIZER SOTELO TOP) Unknown Completed [facility] DTAP Unknown Completed [facility] HIB 4 Dose Schedule Unknown Completed [facility] Hep B, Adol or Pedi Dosage Unknown Completed [facility] MMR Unknown Completed [facility] Pneumococcal 7 Conjugate, PCV7 (Prevnar7) Unknown Completed [facility] Polio (IPV/OPV) Unknown Completed [facility] Varicella (varivax)(chicken pox) Unknown Completed [facility] Influenza Virus Vaccine Unknown Completed [facility] HEPATITIS A Unknown Completed [facility] Influenza Virus Vaccine Unknown Completed [facility] Influenza Virus Vaccine Quad Nasal (Flumist) Unknown Completed [facility] Influenza Virus Vaccine Quad .5 mL IM 6+ MO (FLUZONE/FLULAVAL/FL UARIX) Unknown Completed [facility] Meningococcal B, OMV Unknown Completed [facility] HPV9 Unknown Completed [facility] TDAP Unknown Completed [facility] Meningococcal Polysaccharide (groups A, C, Y and W-135) conjugate vaccine (MCV4P) Unknown Completed [facility] SARS-COV-2 COVID-19 PFIZER VACCINE Unknown Completed [facility] Influenza Virus Vaccine Quad IM, Preserv and ABX Free 6 MO-64 YRS (FLUCELVAX) Unknown Completed [facility] DTaP, Unspecified Formulation Unknown Completed [facility] Influenza Virus Vaccine - Whole Unknown Completed [facility] Influenza Virus Vaccine Nasal Unknown Completed [facility] IPV Unknown Completed [facility] SARS-COV-2 COVID-19 CARLOS ALBERTO-SUCROSE VACCINE 12 YRS+, BIVALENT 0.3ML, IM, (PFIZER SOTELO TOP) Unknown Completed [facility] DTAP Unknown Completed [facility] HIB 4 Dose Schedule Unknown Completed [facility] Hep B, Adol or Pedi Dosage Unknown Completed [facility] MMR Unknown Completed [facility] Pneumococcal 7 Conjugate, PCV7 (Prevnar7) Unknown Completed [facility] Polio (IPV/OPV) Unknown Completed [facility] Varicella (varivax)(chicken pox) Unknown Completed [facility] Influenza Virus Vaccine Unknown Completed [facility] HEPATITIS A Unknown Completed [facility] Influenza Virus Vaccine Unknown Completed [facility] Influenza Virus Vaccine Quad Nasal (Flumist) Unknown Completed [facility] Influenza Virus Vaccine Quad .5 mL IM 6+ MO (FLUZONE/FLULAVAL/FL UARIX) Unknown Completed [facility] Meningococcal B, OMV Unknown Completed [facility] HPV9 Unknown Completed [facility] TDAP Unknown Completed [facility] Meningococcal Polysaccharide (groups A, C, Y and W-135) conjugate vaccine (MCV4P) Unknown Completed [facility] SARS-COV-2 COVID-19 PFIZER VACCINE Unknown Completed [facility] Influenza Virus Vaccine Quad IM, Preserv and ABX Free 6 MO-64 YRS (FLUCELVAX) Unknown Completed [facility] DTaP, Unspecified Formulation Unknown Completed [facility] Influenza Virus Vaccine - Whole Unknown Completed [facility] Influenza Virus Vaccine Nasal Unknown Completed [facility] IPV Unknown Completed [facility] SARS-COV-2 COVID-19 CARLOS ALBERTO-SUCROSE VACCINE 12 YRS+, BIVALENT 0.3ML, IM, (PFIZER SOTELO TOP) Unknown Completed [facility] Vital Signs Vital Name Observation Time Observation Value Comments S ource Systolic blood pressure 2024-06-22 22:24:00 136 mm[Hg] [facility] Diastolic blood pressure 2024-06-22 22:24:00 82 mm[Hg] [facility] Heart rate 2024-06-22 22:24:00 82 /min [facility] Body temperature 2024-06-22 22:24:00 36.94 Yris [facility] Respiratory rate 2024-06-22 22:24:00 18 /min [facility] Body height 2024-06-22 22:24:00 167.6 cm [facility] Body weight 2024-06-22 22:24:00 146.376 kg [facility] BMI 2024-06-22 22:24:00 52.09 kg/m2 [facility] Oxygen saturation in Arterial blood by Pulse oximetry 2024-06-22 22:24:00 98 /min [facility] Systolic blood pressure 2024-03-23 11:05:00 120 mm[Hg] [facility] Diastolic blood pressure 2024-03-23 11:05:00 76 mm[Hg] [facility] Epic Heart rate 2024-03-23 11:05:00 70 /min [facility] Body temperature 2024-03-23 11:05:00 36.78 Yris [facility] Respiratory rate 2024-03-23 11:05:00 16 /min [facility] Body height 2024-03-23 11:05:00 167.6 cm [facility] Body weight 2024-03-23 11:05:00 142.883 kg [facility] BMI 2024-03-23 11:05:00 50.84 kg/m2 [facility] Oxygen saturation in Arterial blood by Pulse oximetry 2024-03-23 11:05:00 97 /min [facility] Systolic blood pressure 2024-03-23 11:05:00 120 mm[Hg] [facility] Diastolic blood pressure 2024-03-23 11:05:00 76 mm[Hg] [facility] Heart rate 2024-03-23 11:05:00 70 /min [facility] Body temperature 2024-03-23 11:05:00 36.78 Yris [facility] Respiratory rate 2024-03-23 11:05:00 16 /min [facility] Body height 2024-03-23 11:05:00 167.6 cm [facility] Body weight 2024-03-23 11:05:00 142.883 kg [facility] [place] BMI 2024-03-23 11:05:00 50.84 kg/m2 [facility] Oxygen saturation in Arterial blood by Pulse oximetry 2024-03-23 11:05:00 97 /min [facility] Epic Systolic blood pressure 2023-06-17 16:21:00 126 mm[Hg] [facility] Diastolic blood pressure 2023-06-17 16:21:00 81 mm[Hg] [facility] Heart rate 2023-06-17 16:21:00 76 /min [facility] Body temperature 2023-06-17 16:21:00 36.33 Yris [facility] Respiratory rate 2023-06-17 16:21:00 18 /min [facility] Body height 2023-06-17 16:21:00 165.1 cm [facility] Body weight 2023-06-17 16:21:00 141.664 kg [facility] BMI 2023-06-17 16:21:00 51.97 kg/m2 [facility] Systolic blood pressure 2023-06-10 15:10:00 132 mm[Hg] [facility] Diastolic blood pressure 2023-06-10 15:10:00 79 mm[Hg] [facility] Heart rate 2023-06-10 15:10:00 73 /min [facility] Body temperature 2023-06-10 15:10:00 36.33 Yris [facility] Respiratory rate 2023-06-10 15:10:00 16 /min [facility] Body height 2023-06-10 15:10:00 165.1 cm [facility] Body weight 2023-06-10 15:10:00 141.205 kg [facility] BMI 2023-06-10 15:10:00 51.80 kg/m2 [facility] Oxygen saturation in Arterial blood by Pulse oximetry 2023-06-10 15:10:00 98 /min [facility] Systolic blood pressure 2022-05-28 16:31:00 138 mm[Hg] [facility] Diastolic blood pressure 2022-05-28 16:31:00 84 mm[Hg] [facility] Heart rate 2022-05-28 16:31:00 81 /min [facility] Body temperature 2022-05-28 16:31:00 35.89 Yris [facility] Respiratory rate 2022-05-28 16:31:00 19 /min [facility] Body height 2022-05-28 16:31:00 165.1 cm [facility] Body weight 2022-05-28 16:31:00 136.578 kg [facility] BMI 2022-05-28 16:31:00 50.11 kg/m2 [facility] Oxygen saturation in Arterial blood by Pulse oximetry 2022-05-28 16:31:00 97 /min [facility] Systolic blood pressure 2022-05-22 15:07:00 147 mm[Hg] [facility] Diastolic blood pressure 2022-05-22 15:07:00 87 mm[Hg] [facility] Heart rate 2022-05-22 15:07:00 83 /min [facility] Body temperature 2022-05-22 15:07:00 36.78 Yris [facility] Respiratory rate 2022-05-22 15:07:00 20 /min [facility] Body height 2022-05-22 15:07:00 165.1 cm [facility] Body weight 2022-05-22 15:07:00 135.172 kg [facility] BMI 2022-05-22 15:07:00 49.59 kg/m2 [facility] Oxygen saturation in Arterial blood by Pulse oximetry 2022-05-22 15:07:00 97 /min [facility] Systolic blood pressure 2022-03-17 22:06:00 128 mm[Hg] [facility] Diastolic blood pressure 2022-03-17 22:06:00 84 mm[Hg] [facility] Heart rate 2022-03-17 22:06:00 102 /min [facility] Body temperature 2022-03-17 22:06:00 36.78 Yris [facility] Respiratory rate 2022-03-17 22:06:00 18 /min [facility] Body height 2022-03-17 22:06:00 [facility].1 [facility] 2022-03-17 22:06:00 138.546 kg [facility] BMI 2022-03-17 22:06:00 50.83 kg/m2 [facility] Systolic blood pressure 2021-03-28 20:00:00 125 mm[Hg] [facility] Diastolic blood pressure 2021-03-28 20:00:00 76 mm[Hg] [facility] Heart rate 2021-03-28 20:00:00 86 /min [facility] Body temperature 2021-03-28 20:00:00 36.67 Yris [facility] Respiratory rate 2021-03-28 20:00:00 16 /min [facility] Body height 2021-03-28 20:00:00 165.7 cm [facility] Body weight 2021-03-28 20:00:00 145.469 kg [facility] BMI 2021-03-28 20:00:00 52.96 kg/m2 [facility] Oxygen saturation in Arterial blood by Pulse oximetry 2021-03-28 20:00:00 99 /min [facility] Procedures Procedure Date / Time Performed Performing Clinician Source GARDASIL 9 (HPV 9V) VACCINE 2024-06-22 23:00:03 Xavier Beckford [facility] Complete Blood Count w/Diff and Platelet 2024-03-23 00:00:00 [facility] Comprehensive Metabolic Panel 2024-03-23 00:00:00 [facility] Iron + transferrin + TIBC 2024-03-23 00:00:00 [facility] Ferritin 2024-03-23 00:00:00 [facility] RPR with Reflexes 2024-03-23 00:00:00 [facility] Ceruloplasmin 2024-03-23 00:00[facility] 2024-03-23 00:00:00 [facility] C-Reactive Protein 2024-03-23 00:00:00 [facility] Immunofixation (PILY) 2024-03-23 00:00:00 [facility] Sedimentation Rate 2024-03-23 00:00:00 [facility] Thyroid Stimulating Hormone w/ Reflex Free T4 2024-03-23 00:00:00 [facility] Vitamin B1 Level 2024-03-23 00:00:00 Yrn delaney [facility] Vitamin B12 Level 2024-03-23 00:00:00 Aditya brian [facility] Zinc Level 2024-03-23 00:00:00 [facility] West Nile Virus Antibodies 2024-03-23 00:00:00 [facility] PT and PTT 2024-03-23 00:00:00 [facility] MRI brain w IV contrast 2024-03-23 00:00:00 [facility] MRI venogram brain wo IV contrast 2024-03-23 00:00:00 [facility] EXTERNAL PROVIDER RECORDS 2023-06-19 06:01:00 Do ctor Unassigned, [place] [facility] ASSIGNMENT OF BENEFITS 2023-06-10 14:47:51 Docto r Unassigned, [place] [facility] SARS-COV-2 COVID-19 CARLOS ALBERTO-SUCROSE VACCINE 12 YRS+, BIVALENT 0.3ML, IM, (PFIZER SOTELO TOP BOOSTER) 2022-05-28 17:31:46 Palmer Altamirano [facility] FLU VACC (), 6 MO-64 YRS, .5ML, IM, QUAD (FLUCELVAX) 2022-05-28 17:31:05 Palmer Altamirano [facility] GARDASIL 9 (HPV 9V) VACCINE 2022-05-28 17:05:32 Xavier Beckford [facility] RAPID STREP SCREEN FOR GROUP A 2022-05-22 16:16:00 Haroldo Vazquez [facility] RAPID INFLUENZA A/B 2022-05-22 16:16:00 aHroldo Vazquez e [facility] COVID-19 (ID NOW RAPID TESTING) 2022-05-22 16:16:00 Haroldo Vazquez [facility] CONSENT/REFUSAL FOR DIAGNOSIS AND TREATMENT 2022-05-22 15:04:12 Doctor Unassigned, [place] [facility] POCT MOLECULAR FLU 2022-03-17 22:23:00 Sheri Tejeda [facility] POCT MOLECULAR STREP 2022-03-17 22:21:00 Sheri Tejeda [facility] US PELVIS COMPLETE WITH TRANSVAGINAL 2021-12-19 19:27:00 Requisition, Paper [facility] ASSIGNMENT OF BENEFITS 2021-12-19 18:36:07 Docto r Unassigned, [place] [facility] Encounters Start Date/Time End Date/Time Encounter Type Admission Type Attending [facility] Care Facility Care Department Encounter ID Source 2024-07-01 13:50:00 2024-07-01 13:50:[address] [facility] [id number] [facility] 2024-06-22 16:30:00 2024-06-22 16:56:[address] [facility] [id number] [facility] 2024-06-22 16:30:00 2024-06-22 16:56:59 Office Visit Xavier [facility] 1.114 350.1.13.10 4.2.7.2.686 [id number] [facility] 2024-03-23 11:30:00 2024-03-23 11:34:23 Consult Camron Corbett [facility] 1.840.114 350.1.13.70 8.2.7.2.686 [id number] Jessie mcghee [facility] 2024-03-23 10:56:00 2024-03-23 11:34:23 Outpatient CAMRON CORBETT [facility] [id number] [facility] 2023-07-15 10:30:00 2023-07-15 10:30:00 Out[address] [facility] [id number] [facility] 2023-06-19 00:00:00 2023-06-19 00:00:00 Orders Only Doctor Unassigned, [place] [facility] 1.114 350.1.13.10 4.2.7.2.686 [id number] [facility] 2023-06-17 10:30:00 2023-06-17 10:39:33 Outpatient R [facility] [facility] [facility] [id number] [facility] 2023-06-17 10:30:00 2023-06-17 10:39:33 Office Visit Xavier Beckford [facility] 1.840.114 350.1.13.10 4.2.7.2.686 [id number] [facility] 2023-06-17 00:00:00 2023-06-17 00:00:00 Refill Xavier Beckford [facility] 1.840.114 350.1.13.10 4.2.7.2.686 [id number] [facility] 2023-06-17 00:00:00 2023-06-17 00:00:00 Telephone Xavier Beckofrd [facility] 1..114 350.1.13.10 4.2.7.2.686 [id number] [facility] 2023-06-10 09:30:00 2023-06-10 10:12:08 Outpatient R [address] [facility] [facility] [id number] [facility] 2023-06-10 09:30:00 2023-06-10 10:12:08 Office Visit Xavier Beckford [facility] 1..114 350.1.13.10 4.2.7.2.686 [id number] [facility] 2023-06-10 00:00:00 2023-06-10 00:00:00 Orders Only Doctor Unassigned, [place] [facility] 1.840.114 350.1.13.10 4.2.7.2.686 [id number] [facility] 2023-05-13 15:30:00 2023-05-13 15:30:00 Outpatient R [address] [facility] [facility] [id number] [facility] 2022-09-18 10:30:00 2022-09-18 10:30:00 Outpatient R [facility] [facility] [facility] [id number] [facility] 2022-08-27 10:30:00 2022-08-27 10:30:00 Outpatient R [facility] [facility] [facility] [id number] [facility] 2022-05-29 00:00:00 2022-05-29 00:00:00 Telephone Beckford, Xavier HERRING [facility] 1.840.114 350.1.13.10 4.2.7.2.686 [id number] [facility] 2022-05-28 11:30:00 2022-05-28 11:31:27 Outpatient R [address] [facility] [facility] [id number] [facility] 2022-05-28 11:30:00 2022-05-28 11:31:27 Office Visit BeckfordXavier garza [facility] 1.2840.114 350.1.13.10 4.2.7.2.686 [id number] [facility] 2022-05-22 09:10:00 2022-05-22 11:34:00 Emergency X Haroldo VAZQUEZ [facility] ERT [id number] [facility] 2022-05-22 09:10:00 2022-05-22 11:34:00 Emergency Haroldo Vazquez [facility] 1.2.840.114 350.1.13.10 4.2.7.2.686 [id number] [facility] 2022-05-13 00:00:00 2022-05-13 00:00:00 Paola Ryan [facility] 1.2840.114 350.1.13.10 4.2.7.2.686 [id number] [facility] 2022-03-17 16:30:00 2022-03-17 17:00:00 Office Visit Sheri Tejeda [facility] 1.20.114 350.1.13.10 4.2.7.2.686 [id number] [facility] 2022-03-17 16:30:00 2022-03-17 16:59:46 [address]I [address] [facility] [id number] [facility] 2021-12-19 13:37:02 2021-12-19 23:59:[address] [facility] [id number] [facility] 2021-12-19 13:37:02 2021-12-19 23:59:00 Hospital Encounter Radiology [facility] 1.20.114 350.1.13.10 4.2.7.2.686 [id number] [facility] 2021-12-19 00:00:00 2021-12-19 00:00:00 Orders Only Doctor Unassigned, [place] [facility] 1..114 350.1.13.10 4.2.7.2.686 [id number] [facility] 2021-11-20 00:00:00 2021-11-20 00:00:00 Paola Ryan [facility] 1.2.114 350.1.13.10 4.2.7.2.686 [id number] [facility] 2021-04-30 13:30:00 2021-04-30 13:30:00 Out[address]USAN SU[address]Z [facility] [id number] [facility] 2021-04-05 00:00:00 2021-04-05 00:00:00 Patient Secure Msg Doctor Unassigned, [place] [facility] 1..114 350.1.13.10 4.2.7.2.686 [id number] [facility] 2021-03-28 14:15:00 2021-03-28 14:20:18 [address] [facility] [id number] [facility] 2021-03-28 13:54:36 2021-03-28 14:20:18 Office Visit Paola Yusuf [facility] 1..114 350.1.13.10 4.2.7.2.686 [id number] [facility] 2021-03-22 09:15:00 2021-03-22 09:15:00 [address] [facility] [id number] [facility] 2021-03-01 10:45:00 2021-03-01 10:45:00 Outpatient [address] [facility] [id number] [facility] 2021-02-05 00:00:00 2021-02-05 00:00:00 Case Management Paola Yusuf [facility] 1..114 350.1.13.10 4.2.7.2.686 [id number] [facility] 2021-02-04 00:00:00 2021-02-04 00:00:00 Telephone Paola Yusuf [facility] 1..114 350.1.13.10 4.2.7.2.686 [id number] [facility] 2021-02-01 15:08:25 2021-02-01 16:02:30 Office Visit Paola Yusuf [facility] 1..114 350.1.13.10 4.2.7.2.686 [id number] [facility] 2021-02-01 15:30:00 2021-02-01 15:30:00 Outpatient R AMALIA PA[address]A [facility] [id number] [facility] 2020-11-26 10:30:00 2020-11-26 10:30:[address] [facility] [id number] [facility] 2020-11-26 08:43:52 2020-11-26 08:53:52 Imm/Inj Visit VaccineRoge Maria Alvin [facility] 1..114 350.1.13.10 4.2.7.2.686 [id number] [facility] 2020-11-01 10:18:12 2020-11-01 12:01:09 Office Visit Xavier Beckford [facility] 1.114 350.1.13.10 4.2.7.2.686 [id number] [facility] 2020-11-01 11:28:36 2020-11-01 11:38:36 Imm/Inj Visit VaccineRoge Maria Alvin [facility] 1.114 350.1.13.10 4.2.7.2.686 [id number] [facility] 2020-11-01 10:30:00 2020-11-01 10:30:00 Outpatient R XAVIER [facility] [facility] [id number] [facility] 2020-11-01 00:00:00 2020-11-01 00:00:00 Orders Only Doctor Unassigned, [place] [facility] 1.114 350.1.13.10 4.2.7.2.686 [id number] [facility] 2020-07-10 00:00:00 2020-07-10 00:00:00 Patient Outreach Cyril Ferrara [facility] 1.840.114 350.1.13.10 4.2.7.2.686 [id number] [facility] 2020-05-17 13:00:00 2020-05-17 13:00:00 Outpatient R [address]A YUSU[address] [facility] [id number] [facility] 2020-04-10 08:38:21 2020-04-10 09:21:09 Urgent Care Provider, [facility] Ivy Gonzalez [facility] Office Building One [id number] 350.1.13.10 4.2.7.2.686 [id number] [facility] 2020-04-10 09:00:00 2020-04-10 09:00:[address] [facility] [id number] [facility] 2020-04-10 00:00:00 2020-04-10 00:00:00 Letter (Out) Doctor Unassigned, [place] [facility] 1.2840.114 350.1.13.10 4.2.7.2.686 [id number] [facility] 2020-04-10 00:00:00 2020-04-10 00:00:00 Letter (Out) Doctor Unassigned, [place] [facility] [id number] 350.1.13.10 4.2.7.2.686 [id number] [facility] 2020-02-15 08:59:41 2020-02-15 09:47:59 Office Visit [facility] 1..114 350.1.13.10 4.2.7.2.686 [id number] [facility] 2020-02-15 09:30:00 2020-02-15 09:30:00 Outpatient [address]A YUSU[facility] [id number] [facility] 2019-06-29 09:06:41 2019-06-29 10:34:18 Office Visit [facility] [id number] 350.1.13.10 4.2.7.2.686 [id number] [facility] 2019-06-29 09:15:00 2019-06-29 09:15:00 Outpatient R [facility] [id number] [facility] 2019-06-29 00:00:00 2019-06-29 00:00:00 Orders Only Paola Yusuf [facility] [id number] 350.1.13.10 4.2.7.2.686 [id number] [facility] 2019-06-21 15:09:55 2019-06-21 15:39:30 Office Visit [facility] [id number] 350.1.13.10 4.2.7.2.686 [id number] [facility] 2019-06-21 15:15:00 2019-06-21 15:15:00 Outpatient R [facility]A [facility] [id number] [facility] 2019-06-21 00:00:00 2019-06-21 00:00:00 Orders Only Doctor Unassigned, [place] [facility] [id number] 350.1.13.10 4.2.7.2.686 [id number] [facility] Results Test Description Test Time Test Comments Results Result Co mments Source [facility] MOLECULAR [id number] 22:35:12* Test Item Value Reference Range Interpretation Comme nts POCT Molecular FluA (test co de = 28910-3) Negative Negative POCT Molecular FluB (test co de = 53178-6) Negative Negative Lab Interpretation (test cod e = 47893-7) Normal [facility] MOLECULAR [id number] 22:29:36* Test Item Value Reference Range Interpretation Comme nts POCT Molecular Strep (test c ode = 59520-3) Negative Negative Lab Interpretation (test cod e = 22189-6) [facility] [id number] 22:29:36* Test Item Value Reference Range Interpretation Comme nts POCT Molecular Strep (test c ode = 00452-9) Negative Negative Lab Interpretation (test cod e = 15184-4) Normal [facility] Notes Date/Time Note Provider Source Referral ID Status Reason Start Date Expiration Date V isits Requested Visits Authorized [id number] Pending Review 03/23/2024 09/19/2024 1 1 T BLANKER* Imaging (Routine) - Pending Review Specialty Diagnoses / Procedures Referred By Gio gonzalez Referred To Contact Radiology Diagnoses Papilledema Other headache syndrome Procedures MRI brain w IV contrast Camron Corbett MD [address] [place] [address] Phone: tel: fax: Referral ID Status Reason Start Date Expiration Date V isits Requested Visits Authorized [id number] Pending Review 03/23/2024 09/19/2024 1 [facility] 18:04:[facility]* [facility] [id number] 18:04:40* Camron Corbett MD - 03/23/2024 11:30 AM CLEAT BLANKER Araceli Nicholson is a 23 y.o. female presenting with papilledema, headache. History of Present Illness Headache Headache pattern: Some headache always there, and the pain level varies Duration: Less than 2 weeks Date current headache began: 11/18/2023 Age current headache began: 22 Frequency: Headaches came more frequently then constant pain started Initial event: Stressful life event Recent event: Stressful life event Time to change: Just a couple of months Is the headache present upon awakening while still laying flat?: Yes Is the headache worse upon awakening when the patient first sits up?: Yes Providers seen: Eye doctor Age of onset (years): 22 Lifetime total: 11 to 18 Longest time without a headache: Days Number of ER visits for headache: 0 Did ER treatment alleviate headache symptoms?: No Number of hospitalizations for headaches: 0 Did hospitalization alleviate headache symptoms?: No ADL impact frequency: 1 to 3 per month Time of day symptoms are worse: No specific time of day Do headaches wake patient from sleep?: Yes Days of the week symptoms are worse: No specific day of the week Season symptoms are worse: No particular season Quality: Pounding, squeezing and throbbing Laterality: Both sides at the same time Location: All over Pain severity: 8 Escalation timing: Wakes up with severe pain Duration: 3 days Headaches last more than three days?: Yes Aggravating factors: Concentrating, light, reading and stress Duration of aggravated symptoms: Hours Allodynia triggers: Wearing a ponytail Changes in thinking and mood: Fatigue, irritability, mood changes, not feeling right and trouble thinking Changes in vision: Spots, stars, lights, zigzag lines, heat waves, blurred vision, double vision and loss of vision Bilateral symptoms: None Unilateral symptoms: None Stomach/GI changes: Nausea and decreased appetite Changes in sensation: Sensitivity to light, lightheadedness, ringing in ears and neck pain Abortive medication frequency of use: 1 to 3 days a week Abortive medication timing of administration: As soon as the pain starts Other abortive medications: Eric aspirin Preventative medications tried: None Vitamins and supplements tried: Magnesium, melatonin and vitamin D Alternative treatments tried: None 2023, headaches, nausea, eye pain, optic edema left eye noted by ophthalmology. Headaches holocephalic headaches, vision blurry. No family history of headaches. No MRI or labs ObjectivePast Medical History She has a past medical history of Headache (started sometime earlier this year). Surgical HistoryShe has no past surgical history on file. Family HistoryFamily History: Problem Relation Name Age of Onset No Known Problems Mother No Known Problems Father No Known Problems Sister No Known Problems Brother No Known Problems Mother's Sister No Known Problems Mother's Brother No Known Problems Father's Sister No Known Problems Father's Brother Seizures Maternal Grandmother Valencia No Known Problems Maternal Grandfather No Known Problems Paternal Grandmother No Known Problems Paternal Grandfather No Known Problems Other Social History She reports that she has never smoked. She has never been exposed to tobacco smoke. She has never used smokeless tobacco. She reports that she does not drink alcohol and does not use drugs. AllergiesPatient has no known allergies. MedicationsCurrent Outpatient Medications Medication Sig Dispense Refill topiramate (Topamax) 25 MG tablet Take 1 tablet by mouth at bedtime. 30 tablet 2 No current facility-administered medications for this visit. Review of Systems Eyes: Positive for photophobia, pain and visual disturbance. Neurological: Positive for headaches. Last Recorded Vitals Vitals: 03/23/24 1105 BP: 120/76 Pulse: 70 Resp: 16 Temp: 36.8 ?C (98.2 ?F) SpO2: 97% Physical ExamVitals reviewed. Constitutional: Appearance: Normal appearance. She is obese. HENT: Head: Normocephalic. Eyes: General: Lids are normal. Extraocular Movements: Extraocular movements intact. Funduscopic exam: Left eye: Papilledema present. Cardiovascular: Rate and Rhythm: Normal rate and regular rhythm. Pulmonary: Effort: Pulmonary effort is normal. Breath sounds: Normal breath sounds. Abdominal: General: Bowel sounds are normal. Musculoskeletal: General: Normal range of motion. Cervical back: Normal range of motion. Skin: General: Skin is warm and dry. Neurological: Motor: Motor strength is normal. Coordination: Coordination is intact. Deep Tendon Reflexes: Reflexes are normal and symmetric. Psychiatric: Mood and Affect: Mood normal. Speech: Speech normal. Thought Content: Thought content normal. Neurological ExamMental Status Awake, alert and oriented to person, place and time. Speech is normal. Cranial NervesCN II: Visual acuity is normal. Right visual acuity: 20/20. Left visual acuity: 20/20. Visual pandey full to confrontation. Left funduscopic exam: papilledema. CN III, IV, : Extraocular movements intact bilaterally. Normal lids and orbits bilaterally. CN V: Facial sensation is normal. CN VII: Full and symmetric facial movement. CN VIII: Hearing is normal. CN IX, X: Palate elevates symmetrically. Normal gag reflex. CN XI: Shoulder shrug strength is normal. CN XII: Tongue midline without atrophy or fasciculations. MotorNormal muscle bulk throughout. Normal muscle tone. No abnormal involuntary movements. Strength is 5/5 throughout all four extremities. SensorySensation is intact to light touch, pinprick, vibration and proprioception in all four extremities. ReflexesDeep tendon reflexes are 2+ and symmetric in all four extremities. Coordination Aldfag-ag-czvm, rapid alternating movements and dauf-vz-qceq normal bilaterally without dysmetria. GaitNormal casual, toe, heel and tandem gait. Relevant Results Assessment & PlanDiagnoses and all orders for this visit: Papilledema - Complete Blood Count w/Diff and Platelet; Future - Comprehensive Metabolic Panel; Future - Iron + transferrin + TIBC; Future - Ferritin; Future - RPR with Reflexes; Future - Ceruloplasmin; Future - Copper Level; Future - C-Reactive Protein; Future - Immunofixation (PILY); Future - Sedimentation Rate; Future - Thyroid Stimulating Hormone w/ Reflex Free T4; Future - Vitamin B1 Level; Future - Vitamin B12 Level; Future - Zinc Level; Future - West Nile Virus Antibodies; Future - PT and PTT; Future - MRI brain w IV contrast; Future - MRI venogram brain wo IV contrast; Future Other headache syndrome - Complete Blood Count w/Diff and Platelet; Future - Comprehensive Metabolic Panel; Future - Iron + transferrin + TIBC; Future - Ferritin; Future - RPR with Reflexes; Future - Ceruloplasmin; Future - Copper Level; Future - C-Reactive Protein; Future - Immunofixation (PILY); Future - Sedimentation Rate; Future - Thyroid Stimulating Hormone w/ Reflex Free T4; Future - Vitamin B1 Level; Future - Vitamin B12 Level; Future - Zinc Level; Future - West Nile Virus Antibodies; Future - PT and PTT; Future - MRI brain w IV contrast; Future - MRI venogram brain wo IV contrast; Future Other orders - topiramate (Topamax) 25 MG tablet; Take 1 tablet by mouth at bedtime. Probably pseudotumor, BMI is 50. Check labs and imaging as noted. Suspect she has superimposed migraines as well. Start Topamax for headache prophylaxis. Will keep you updated on her progress [facility]2024-12-05 18:04:40Upcoming Encounters Scheduled Orders Name Type Priority Associated Diagnoses Orde r Schedule Complete Blood Count w/Diff and Platelet Lab Routine Papilledema Other headache syndrome Expected: 03/23/2024 (Approximate), Expires: 03/23/2025 Comprehensive Metabolic Panel Lab Routine Papilledema Other headache syndrome Expected: 03/23/2024 (Approximate), Expires: 03/23/2025 Iron + transferrin + TIBC Lab Routine Papilledema Other headache syndrome Expected: 03/23/2024 (Approximate), Expires: 03/23/2025 Ferritin Lab Routine Papilledema Other headache syndrome Expected: 03/23/2024 (Approximate), Expires: 03/23/2025 RPR with Reflexes Lab Routine Papilledema Other headache syndrome Expected: 03/23/2024 (Approximate), Expires: 03/23/2025 Ceruloplasmin Lab Routine Papilledema Other headache syndrome Expected: 03/23/2024 (Approximate), Expires: 03/23/2025 Copper Level Lab Routine Papilledema Other headache syndrome Expected: 03/23/2024 (Approximate), Expires: 03/23/2025 C-Reactive Protein Lab Routine Papilledema Other headache syndrome Expected: 03/23/2024 (Approximate), Expires: 03/23/2025 Immunofixation (PILY) Lab Routine Papilledema Other headache syndrome Expected: 03/23/2024 (Approximate), Expires: 03/23/2025 Sedimentation Rate Lab Routine Papilledema Other headache syndrome Expected: 03/23/2024 (Approximate), Expires: 03/23/2025 Thyroid Stimulating Hormone w/ Reflex Free T4 Lab Routine Papilledema Other headache syndrome Expected: 03/23/2024 (Approximate), Expires: 03/23/2025 Vitamin B1 Level Lab Routine Papilledema Other headache syndrome Expected: 03/23/2024 (Approximate), Expires: 03/23/2025 Vitamin B12 Level Lab Routine Papilledema Other headache syndrome Expected: 03/23/2024 (Approximate), Expires: 03/23/2025 Zinc Level Lab Routine Papilledema Other headache syndrome Expected: 03/23/2024 (Approximate), Expires: 03/23/2025 West Nile Virus Antibodies Lab Routine Papilledema Other headache syndrome Expected: 03/23/2024 (Approximate), Expires: 03/23/2025 PT and PTT Lab Routine Papilledema Other headache syndrome Expected: 03/23/2024 (Approximate), Expires: 03/23/2025 MRI brain w IV contrast Imaging Routine Papilledema Other headache syndrome Expected: 03/23/2024, Expires: 03/23/2025 MRI venogram brain wo IV contrast Imaging Routine Papilledema Other headache syndrome Expected: 03/23/2024, Expires: 03/23/2025 Health Maintenance Due Date Last Done Comments Lipid Panel 1999 Pap Smear 10/26/2020 HPV Vaccines (3 - 3-dose series) 08/20/2022 05/28/2022, 06/29/2019 Influenza Vaccine (#1) 2023 , 02/01/2021, 02/15/2020, Additional history exists Annual Physical 06/10/2024 06/10/2023, 11/2022, 11/01/2020, Additional history exists DTaP/Tdap/Td Vaccines (7 - Td or Tdap) 06/28/2029 06/29/2019, 11/27/2003, 01/21/2001, Additional history exists HIB Vaccines Completed 11/05/2000, 04/21, 03/11/2000, Additional history exists Pneumococcal Vaccine: Pediatrics (0 to 5 Years) and At-Risk Patients (6 to 64 Years) Aged Out 01/21/2001, 11/05/2000 No longer eligibl e based on patient's age to complete this topic Hepatitis B Vaccines Completed 11/10/2001, 08/10/2000, 03/11/2000, Additional history exists IPV Vaccines Completed 11/27/2003, 12/2003, 11/05/2000, Additional history exists Hepatitis A Vaccines Completed 05/14/2007, 03/17/20 05 Varicella Vaccines Completed 05/14/2007, 01/21/2001 Meningococcal Vaccine Aged Out 06/29/2019 No tee kraig eligible based on patient's age to complete this topic Rotavirus Vaccines Aged Out No longer eligible based on patient's age to complete this topic [id number]:04:40 Diagnosis Papilledema - Primary Unspecified papilledema Other headache syndrome [facility]xqirjs2298-04-13 18:04:40 [id number] 12:54:15 Spoke to patient and gave her the message from VIMAL Woodson TIAN Bravo [facility]2024-03-04 11:03:44 She can buy a bp monitor No new diagnosis for ozmepic - we can send PA when we get it [place] [id number] 10:49:03 Aguirre: [id number] Information regarding your request Product not covered for this health plan/disease state/medication as submitted. Product not covered by this plan for this diagnosis. For a FDA label approved diagnosis, please resubmit with an ICD 10 code or submit via other methods. TIAN Garcia [facility]gke[facility]6470-31-38 08:10:08 Images from the original note were not included. Cristy Bravo LVN 06/17/23 12:20 PM Spoke to pharmacy and they stated the BP machine is OTC insurance does not cover it and the ozempic needs a PA. Contacted patient to let her know Ozempic may only be covered if she is Type 2 diabetic. Patient stated she talked to her insurance company and they stated they will cover it. PA sent Aguirre: [place] [id number] 12:19:15 Spoke to pharmacy and they stated the BP machine is OTC insurance does not cover it and the ozempic needs a PA. Contacted patient to let her know Ozempic may only be covered if she is Type 2 diabetic. Patient stated she talked to her insurance company and they stated they will cover it. PA sent Aguirre: [place] [id number] 12:00:59 Maria Alejandra Nicholson is a 22 year old female Pt calling in stating the pharmacy is telling her that the ozempic was called in incorrectly and they never received the req for a monitor kit. Please call pt TIAN Saldivar [facility]
[2024-08-01 11:12] LABS: Absolute Eosinophils 0.2 K/uL (0-0.5); Absolute Lymphocytes (CBC) 2.7 K/uL (0.7-4.9); Absolute Monocytes 0.5 K/uL (0.1-1.3); Absolute Neutrophil 3.3 K/uL (1.8-8.0); Basophils % 0.5 % (0-1.3); Eosinophils % 2.9 % (0-4.4); Hematocrit 37.1 % (36.0-45.0); Hemoglobin 12.8 g/dL (12.0-15.0); Lymphocytes % 39.7 % (15.3-44.8); MCH 29.4 pg (27.0-35.0); MCHC 34.6 g/dL (32.0-36.0); MCV 85.1 fL (80-100); MPV 8.6 fL (7.6-11.3); Monocytes % 7.8 % (3.3-12.3); Neutrophils % 49.1 % (41.7-73.7); Platelets 366 thou/uL (152-406); RBC Red Blood Cell Count 4.36 M/uL (3.86-4.86); Red Cell Distribution Width 13.2 % (12.1-15.2)
[2024-08-01 11:31] LABS: Specific Gravity 1.024 (1.005-1.030); Urine Bacteria None Seen /HPF (<20); Urine Bilirubin NEGATIVE (Negative); Urine Blood 3+ (Negative); Urine Clarity Extremely Turbid (Clear); Urine Color Light-Yellow (Yellow); Urine Culture Reflex Order REFLEXED; Urine Glucose NEGATIVE (Negative); Urine Ketones NEGATIVE (Negative); Urine Microscopic Reflex YN ORDER UMIC; Urine Mucus Slight /HPF (None Seen); Urine Nitrite NEGATIVE (Negative); Urine Protein NEGATIVE (Negative); Urine Urobilinogen Normal (Normal); Urine pH 5.5 (5.0-7.0)
--- NOTE | 2024-08-01 11:31 | RAD REPORT ---
EXAMINATION: US PELVIS TRANSVAGINAL WITH DOPPLER CLINICAL INDICATION: Female 23 years old. ABD PAIN TECHNIQUE: Real-time ultrasonography of the pelvis was performed transvaginally. Color and spectral D oppler evaluation of the ovaries was performed. COMPARISON: No prior exam. FINDINGS: UTERUS AND CERVIX: The uterus measures 7.1 x 4.1 x 3.3 cm (cervix to fundus x AP x transverse). The u terus is normal. No masses seen The endometrium is normal, 2 mm in thickness. RIGHT OVARY: Normal. The right ovary measures 4.3 x 2.6 x 2.6 cm. Normal color and spectral Doppler evaluation of the right ovary.. 3.6 cm right ovarian cyst or follic le. LEFT OVARY: Normal. The left ovary measures 4.0 x 2.3 x 2.2 cm. Normal color and spectral Doppler evaluation of the left ovary.. FREE FLUID: Small, physiologic volume of free fluid in the pelvis. IMPRESSION: 3.6 cm right ovarian cyst or follicle. Elsewhere no acute process.
[2024-08-01 11:32] LABS: Specific Gravity 1.024 (1.005-1.030)
[2024-08-01 11:33] LABS: Albumin 3.6 g/dL (3.4-5.0); Albumin/Globulin Ratio 0.9 (1.1-1.8); Anion Gap 7.1 mEq/L (5.0-15.0); Bilirubin Total 0.3 mg/dL (0.2-1.0); Potassium 4.1 mEq/L (3.5-5.1); Protein, Total 7.6 g/dL (6.4-8.2)
--- NOTE | 2024-08-01 11:52 | RAD REPORT ---
EXAMINATION: CT ABDOMEN AND PELVIS WITH CONTRAST CLINICAL INDICATION: ABD PAIN TECHNIQUE: CT abdomen and pelvis was performed, after the administration of IV contrast, as per [facility]. Axial, sagittal and coronal reconstructions were obtained. One or more of the following dose reduction techniques were used: Automated exposure control, adjustment of the mA and k V according to patient size, and iterative reconstruction. Unless otherwise specified, incidental findings do not require dedicated imaging follow-up. COMPARISON: No prior exam. FINDINGS: LOWER CHEST: The visualized lung bases are clear. LIVER: Normal in size and contour. No focal lesion. Cholelithiasis. SPLEEN: Normal size. No focal lesion. PANCREAS: No mass, ductal dilation, or maria c-pancreatic fluid. ADRENALS: Normal; no mass. KIDNEYS: Normal size and contour. No hydronephrosis. GASTROINTESTINAL TRACT: No evidence of free air, significant intra-abdominal free fluid, bowel obstru ction or abscess. APPENDIX: Normal appendix. LYMPH NODES: No lymphadenopathy. MUSCULOSKELETAL: No acute or suspicious osseous abnormality. IMPRESSION: Cholelithiasis.
--- NOTE | 2024-08-01 12:33 | ER ---
Nurse's Notes [facility] Name: Maria Alejandra Dela Cruz Age: 23 yrs Sex: Female : 2000 Arrival Date: 08/01/2024 Time: 09:59 Bed 15 Private MD: Diagnosis: Other and unspecified ovarian cysts;Other cholelithiasis without obstruction Presentation: 08/01 10:24 Chief complaint: Patient states: Pt reports a hx of PCOS and states that she has been ss on her period for two weeks, but in the last 3 days she has been cramping with no relief. Coronavirus screen: Client denies travel out of the [place] in the last 14 days. Ebola Screen: Patient denies exposure to infectious person. Patient denies travel to an Ebola-affected area in the 21 days before illness onset. Initial Sepsis Screen: Does the patient meet any 2 criteria? No. Patient's initial sepsis screen is negative. Does the patient have a suspected source of infection? No. Patient's initial sepsis screen is negative. Risk Assessment: Do you want to hurt yourself or someone else? Patient reports no desire to harm self or others. Onset of symptoms was July 29, 2024. 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 - Infectious Disease History:: Denies. - Social history:: Smoking status: Patient denies any tobacco usage or history of. - Family history:: not pertinent. - Hospitalizations: : No recent hospitalization is reported. Screenin:30 [facility] ED Fall Risk Assessment (Adult) History of falling in the last 3 months, ld1 including since admission No falls in past 3 months (0 pts) Confusion or Disorientation No (0 pts) Intoxicated or Sedated No (0 pts) Impaired Gait No (0 pts) Mobility Assist Device Used No (0 pt) Altered Elimination No (0 pt) Score/Fall Risk Level 0 - 2 = Low Risk Oriented to surroundings, Hourly rounding (assess needs \T\ fall precautionary measures) done. Abuse screen: Denies threats or abuse. Denies injuries from another. Nutritional screening: No deficits noted. Tuberculosis screening: No symptoms or risk factors identified. Assessment: 10:30 General: Appears in no apparent distress. comfortable, Behavior is calm, cooperative, ld1 appropriate for age. Pain: Complains of pain in abdomen Pain does not radiate. Pain currently is 7 out of 10 on a pain scale. Quality of pain is described as crampy, Pain began 2-3 days ago. Is continuous. Neuro: Level of Consciousness is awake, alert, obeys commands, Oriented to person, place, time, situation. Cardiovascular: Capillary refill < 3 seconds Patient's skin is warm and dry. Respiratory: Airway is patent Respiratory effort is even, unlabored. GI: Abdomen is round non-distended, Bowel sounds present X 4 quads. Abd is soft Abd is non tender. : No signs and/or symptoms were reported regarding the genitourinary system. EENT: No signs and/or symptoms were reported regarding the EENT system. Derm: No signs and/or symptoms reported regarding the dermatologic system. Musculoskeletal: No signs and/or symptoms reported regarding the musculoskeletal system. 12:03 Reassessment: Patient appears in no apparent distress at this time. No changes from ld1 previously documented assessment. Patient and/or family updated on plan of care and expected duration. Pain level reassessed. 13:02 Reassessment: Patient appears in no apparent distress at this time. No changes from ld1 previously documented assessment. Patient and/or family updated on plan of care and expected duration. Pain level reassessed. Vital Signs: 10:24 BP 149 / 106; Pulse 75; Resp 16; Pulse Ox 99% on R/A; Height 5 ft. 10 in. ; Pain 5/10; ss 12:03 BP 139 / 99; Pulse 71; Resp 18; Pulse Ox 100% on R/A; ld1 13:02 BP 136 / 89; Pulse 74; Resp 18; Pulse Ox 100% on R/A; ld1 10:24 Pain Scale: Adult ss ED Course: 10:02 Patient arrived in ED. al6 10:04 Joshua Castellon MD is Attending Physician. rn 10:18 Alejandra Campbell RN is Primary Nurse. ld1 10:27 Triage completed. ss 10:27 Arm band placed on right wrist. ss 10:30 Patient has correct armband on for positive identification. Placed in gown. Bed in low ld1 position. Call light in reach. Side rails up X2. Pulse ox on. NIBP on. Door closed. Noise minimized. Warm blanket given. 10:30 No provider procedures requiring assistance completed. ld1 10:56 Transvaginal Study Probe In Process Unspecified. EDMS 11:01 Urinalysis w/ reflexes Sent. ld1 11:01 Test, Urine Sent. ld1 11:01 Inserted saline lock: 20 gauge in right antecubital area, using aseptic technique. ld1 Blood collected. Flushed with 10 mL NS. 11:46 CT Abd/Pelvis - IV Contrast Only In Process Unspecified. EDMS 13:03 IV discontinued, intact, bleeding controlled, No redness/swelling at site. ld1 Administered Medications: No medications were administered Medication: 10:30 VIS not applicable for this client. ld1 Outcome: 12:32 Discharge ordered by . rn 13:03 Discharged to home ambulatory, with family, ld1 13:03 Condition: stable 13:03 Discharge instructions given to patient, family, Instructed on discharge instructions, follow up and referral plans. medication usage, Demonstrated understanding of instructions, follow-up care, medications, Prescriptions given X 1, 13:03 Patient left the ED. ld1 Signatures: Dispatcher [employer] Joshua King MD MD rn Blanchard, Shelby, RN RN ss Sims, Lauren, RN RN ld1 Carmela Feliz
--- NOTE | 2024-08-01 12:33 | EDPHYS ---
Physician Documentation [facility] Name: Maria Alejandra Dela Cruz Age: 23 yrs Sex: Female : 2000 Arrival Date: 08/01/2024 Time: 09:59 Bed 15 Private MD: ED Physician Joshua Castellon HPI: 08/01 10:36 This 23 yrs old Female presents to ER via Ambulatory with complaints of rn Abdominal Pain. 10:36 The patient presents with abdominal pain. Onset: The symptoms/episode began/occurred 3 rn day(s) ago. The patient has not recently seen a physician. Patient reports lower abdominal pain for the last 3 days. Has history of PCOS and irregular periods. Just finished her last period and no longer bleeding in the last few days. Denies any fever or chills. Does not feel ill. No trauma. No blood in stool. No vomiting or diarrhea.. 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 - Infectious Disease History:: Denies. - Social history:: Smoking status: Patient denies any tobacco usage or history of. - Family history:: not pertinent. - Hospitalizations: : No recent hospitalization is reported. ROS: 10:36 Constitutional: Negative for fever, chills, and weight loss, Abdomen/GI: Positive for rn lower abdominal pain Back: Negative for injury and pain, : Negative for injury, bleeding, discharge, and swelling, MS/Extremity: Negative for injury and deformity, Exam: 10:36 Constitutional: This is a well developed, well nourished patient who is awake, alert, rn and in no acute distress. Cardiovascular: Regular rate and rhythm. No pulse deficits. Respiratory: No increased work of breathing, no retractions or nasal flaring. Abdomen/GI: Soft, mild suprapubic tenderness without peritoneal signs. Vital Signs: 10:24 BP 149 / 106; Pulse 75; Resp 16; Pulse Ox 99% on R/A; Height 5 ft. 10 in. ; Pain 5/10; ss 12:03 BP 139 / 99; Pulse 71; Resp 18; Pulse Ox 100% on R/A; ld1 13:02 BP 136 / 89; Pulse 74; Resp 18; Pulse Ox 100% on R/A; ld1 10:24 Pain Scale: Adult ss MDM: 10:04 Medical Screening Exam initiated rn 12:30 Differential diagnosis: appendicitis, diverticulitis, Endometriosis, non-specific abd rn pain, Ovarian Torsion, Ureterolithiasis, urinary tract infection, Ovarian cyst, PCOS. Data reviewed: vital signs, nurses notes, lab test result(s), radiologic studies, CT scan, ultrasound, and as a result, I will discharge patient. Counseling: I had a detailed discussion with the patient and/or guardian regarding the historical points, exam findings, and any diagnostic results supporting the discharge/admit diagnosis, lab results, radiology results, the need for outpatient follow up, to return to the emergency department if symptoms worsen or persist or if there are any questions or concerns that arise at home. Special discussion: Based on the patient's Hx, exam, and Dx evaluation, there is no indication for emergent surgery or inpatient Tx. It is understood by the patient/guardian that if the Sx's persist or worsen they need to return immediately for re-evaluation. I discussed with the patient/guardian in detail that at this point there is no indication for admission to the hospital. It is understood, however, that if the symptoms persist or worsen the patient needs to return immediately for re-evaluation. Based on the history and exam findings, there is no indication for further emergent testing or inpatient evaluation. I discussed with the patient/guardian the need to see the OB Gyne specialist for further evaluation of the symptoms. I discussed with the patient/guardian the need to see the primary care provider for further evaluation of the symptoms. ED course: Ultrasound reveals incidentally cholelithiasis, patient has no upper abdominal pain or vomiting to indicate that this is an acute problem. Likely incidental finding and advised patient to modify diet to avoid future problems and given return precautions regarding cholelithiasis. Ultrasound is negative for torsion but does reveal right-sided ovarian cyst. No other acute pathology. Patient has known PCOS. Will send home with anti-inflammatory medication and recommend SUBSTATION OPERATOR CONVERSION follow-up.. 08/01 10:25 Order name: CBC with Diff; Complete Time: 11:34 rn 08/01 10:25 Order name: CMP; Complete Time: 11:34 rn 08/01 10:25 Order name: Test, Urine; Complete Time: 11:34 rn 08/01 10:25 Order name: Urinalysis w/ reflexes; Complete Time: 11:34 rn 08/01 11:35 Order name: Urine Culture EDOK 08/01 10:25 Order name: CT Abd/Pelvis - IV Contrast Only; Complete Time: 12:05 rn 08/01 10:56 Order name: Transvaginal Study Probe; Complete Time: 11:34 EDOK 08/01 10:25 Order name: IV Saline Lock; Complete Time: 11:01 rn 08/01 10:25 Order name: Labs collected and sent; Complete Time: 11:01 rn Administered Medications: No medications were administered Disposition Summary: 08/01/24 12:32 Discharge Ordered Notes: Location: Home rn Problem: new rn Symptoms: have improved rn Condition: Stable rn Diagnosis - Other and unspecified ovarian cysts rn - Other cholelithiasis without obstruction rn Followup: rn - With: Private Physician - When: As needed - Reason: Recheck today's complaints, Re-evaluation by your physician Discharge Instructions: - Discharge Summary Sheet rn - Ovarian Cyst rn - Cholelithiasis rn Forms: - Work release form bd - Medication Reconciliation Form rn - Antibiotic lieutenant governor - Prescription Opioid Use rn - Patient Portal Instructions rn - Leadership Thank You Letter rn Prescriptions: - Diclofenac Sodium 75 mg Oral tablet, delayed release (enteric coated) - take 1 tablet ORAL route 2 times per day As needed; 20 tablet; Refills: 0, rn Product Selection Permitted Signatures: Dispatcher [employer] EDOK Joshua Castellon MD MD rn Blanchard, Shelby, RN RN ss Sims, Lauren, RN RN ld1 Corrections: (The following items were deleted from the chart) 10:26 10:26 CBC+H.LAB.BRZ ordered. EDMS EDMS 10:26 10:26 COMPREHENSIVE METABOLIC PANEL+C.LAB.BRZ ordered. EDMS EDMS 10:26 10:26 Test, Urine+UC.LAB.BRZ ordered. EDMS EDMS 10:26 10:26 Urinalysis+U.LAB.BRZ ordered. EDMS EDMS 10:26 10:26 Abdomen Pelvis W Con+CT.RAD.BRZ ordered. EDMS EDMS 10:26 10:26 Pelvis Complete+US.RAD.BRZ ordered. EDMS EDMS 10:37 10:36 Constitutional: Negative for fever, chills, and weight loss, Abdomen/GI: Positive rn for lower abdominal pain : Negative for injury, bleeding, discharge, and swelling, MS/Extremity: Negative for injury and deformity, rn 10:37 10:36 Constitutional: This is a well developed, well nourished patient who is awake, rn alert, and in no acute distress. Abdomen/GI: Soft, mild suprapubic tenderness without peritoneal signs. rn
[2024-08-01 13:19] VITALS: O2SAT 100
[2024-08-01 13:29] VITALS: BP 136/89
== END 2024-08-01 13:03 | disposition home or self-care (01) ==
LOC: ER 09:59
DX: K80.80 Other cholelithiasis without obstruction (principal); N83.299 Other ovarian cyst, unspecified side
CPT/HCPCS: 87088; 85025; 81001; 87086; 36415; 81025; 80053; 74177; 76830; 99284; Q9967; 87077; 87186